=== PATIENT | male | born 1960 | race Caucasian/White ===

== ENCOUNTER 2016-12-31 10:37 | Emergency (ER) | payer BC, OTHER ==
[~2016-12-31] VITALS: Ht 172.7 cm; Wt 119.0 kg
[~2016-12-31 10:37] MED LIST: AMLO-114 PO; LRT5 PO
[2016-12-31 10:59] VITALS: TEMP 36.7; Ht 172.7 cm; Wt 119.0 kg
[2016-12-31] MEDS ORDERED: ALBUT/IPRATROP 3MG/0.5MG NEB 3 ML VIAL INH STA (11:15)
[2016-12-31 11:20] VITALS: O2SAT 94
[2016-12-31] MEDS ORDERED: METO-837 PO (11:40)
[2016-12-31] MEDS ORDERED: ASPI81TA28 PO (11:40)
[2016-12-31] MEDS ORDERED: LOSA25TA18 PO (11:40)
[2016-12-31] MEDS ORDERED: RANI150T3 PO (11:41)
--- NOTE | 2016-12-31 11:48 | DIAGNOSTIC IMAGING REPORT ---
CHEST ONE VIEW PORTABLE CLINICAL HISTORY: Shortness of breath COMPARISON STUDY: No previous studies for comparison. FINDINGS: The heart is mildly enlarged. There is no failure. There are left lower lobe airspace opacities possibly representing a pneumonia. There is blunting left lateral costophrenic angle suggesting a small effusion.[ The right lung is clear. IMPRESSION: 1. Left lower lobe airspace opacities, possibly representing a pneumonia. 2. Small left pleural effusion 3. Clinical and radiographic follow-up is recommended Electronically signed by: River Lang M.D. 12/31/2016 11:47 AM Dictated Date/Time: 12/31/2016 11:46 AM
[2016-12-31 11:50] LABS: BASO % 0.4 %; BASO ABS # 0.04 K/uL (0-0.2); COMPLETE YES; EOS % 0.6 %; HEMATOCRIT 49.3 % (42-52); IG% 0.2 %; LYMPH % 9.1 %; LYMPH ABS # 0.99 K/uL (1.2-3.4); MEAN CELL VOLUME 92.8 fL (80-100); MEAN CORPUSCULAR HGB CONC 34.5 g/dl (32-36); MEAN PLATELET VOLUME 10.5 fL (7.4-10.4); MONO % 10.5 %; NEUT % 79.2 %; PLATELET COUNT 304 K/uL (130-400); RED BLOOD COUNT 5.31 M/uL (4.7-6.1); WHITE BLOOD COUNT 10.86 K/uL (4.8-10.8)
[2016-12-31] MEDS ORDERED: HYDROmorphone INJ 0.5 MG/0.5 ML SYR IV STA ×2 (11:50→14:58)
[2016-12-31 11:58] LABS: INR 1.1 (0.9-1.1)
[2016-12-31 12:08] LABS: BUN/CREATININE RATIO 13.4 (10-20); CALCIUM 9.2 mg/dl (8.5-10.1); CREATININE 1.1 mg/dl (0.60-1.40); POTASSIUM 4.2 mmol/L (3.5-5.1)
[2016-12-31 12:10] LABS: ALB/GLOB RATIO 0.7 (0.9-2)
[2016-12-31] MEDS ORDERED: OPTIRAY 320 IV PRN (12:15)
--- NOTE | 2016-12-31 12:35 | DIAGNOSTIC IMAGING REPORT ---
CT ANGIOGRAM OF THE CHEST CLINICAL HISTORY: Left-sided chest pain. Pleurisy. Shortness of breath. Abnormal chest x-ray. COMPARISON STUDY: Chest x-ray dated 12/31/2016 TECHNIQUE: Following the IV administration of 95 mL of Optiray-320, CT angiogram of the thorax was performed from the thoracic inlet to the lung bases utilizing the pulmonary embolus protocol. Images are reviewed in the axial, sagittal, and coronal planes. IV contrast was administered without complication. MIP imaging was performed. A dose lowering technique was utilized adhering to the principles of ALARA. CT DOSE: 687.66 mGy.cm FINDINGS: The visualized portions the upper abdomen reveal hepatic steatosis. Mediastinal and left hilar lymph nodes are the upper limits of normal in size. There is no pathologic axillary lymphadenopathy. There was no evidence of thoracic aortic dilatation. There were no pulmonary artery filling defects to indicate acute pulmonary embolism. There is a left pleural effusion. There is an area of masslike consolidation within the superior segment the left lower lobe, likely representing a focal pneumonia. Imaging subsequent to treatment will be necessary to document resolution. IMPRESSION: 1. No evidence of acute pulmonary or wasn't 2. 3.4 cm area of masslike consolidation within the superior segment of the left lower lobe, likely are presenting a focal pneumonia. Imaging subsequent to treatment is recommended to document resolution, and exclude an underlying neoplasm 3. Left pleural effusion Electronically signed by: River Lang M.D. 12/31/2016 12:33 PM Dictated Date/Time: 12/31/2016 12:29 PM
[2016-12-31] MEDS ORDERED: LEVAQUIN 750MG / 150ML D5W IV STA (13:27)
[2016-12-31] MEDS ORDERED: SODIUM CHLORIDE 0.9% 1000ML 1,000 ML IV STA (15:30)
[2016-12-31] MEDS ORDERED: KETOROLAC TROMETHAMINE 30 MG/ML VIAL IV STA (16:00)
[2016-12-31] MEDS ORDERED: FENTANYL CITRATE INJ 50 MCG/1 ML 2 ML VIAL IV STA (16:00)
[2016-12-31] MEDS ORDERED: OXYCODONE IR HOME PACK PO ONE (17:15)
[2016-12-31] MEDS ORDERED: LEVO-366 PO (17:22)
[2016-12-31] MEDS ORDERED: OXYC1TAB3 PO (17:22)
[2016-12-31] MEDS ORDERED: ALBUTEROL HFA 8 GM INHALER INH ONE (17:30)
[2016-12-31 17:53] VITALS: BP 142/82; PULSE 85; O2SAT 95
--- NOTE | 2016-12-31 18:24 | EMERGENCY ROOM VISIT NOTE ---
History Report prepared by Belinda: Jaqueline Clayton Under the Supervision of: Dr. Trevin Blanca M.D. First contact with patient: 11:28 Chief Complaint: SHORTNESS OF BREATH Stated Complaint: TROUBLE BREATHING,CAN'T TAKE A DEEP BREATH Nursing Triage Summary: patient states he was feeling x3 weeks. today patient woke up around 0300 coughing and c/o left lower chest pain and pain durin inspiration and SOB History of Present Illness The patient is a 56 year old male who presents to the Emergency Room with complaints of shortness of breath beginning at 0300 this morning. He states that over the last few weeks he has also had back pain. He also reports having a cough for the last 2 years, but that it has not changed recently. The patient states that he has had full body achiness over the last 3 weeks, but no other cold symptoms. He states that he has been unable to take a deep breath and that when he does, his pain is exacerbated. He reports that he has been tested for Lyme disease before but that it was negative. Pt denies LOC, headache, fevers, chills, diaphoresis, visual changes, neck pain, chest pain, nausea, vomiting, abdominal pain, melena, hematochezia, urinary symptoms, numbness, lymphadenopathy, rash, or other complaints. The patient denies recent travels. He reports that his mother has hyperlipidemia, but denies a family history of heart problems. The patient states that he is currently not treated for his cholesterol. Source of History: patient Onset: 0300 this morning Position: other (global) Quality: other (shortness of breath ) Modifying Factors (Worsening): other (trying to take a deep breath ) Associated Symptoms: + cough, + back pain, + weakness (full body achiness ) , No fevers Review of Systems See HPI for pertinent positives and negatives. A total of ten systems were reviewed and were otherwise negative. Past Medical & Surgical Medical Problems: (1) Borderline hyperlipidemia Family History FH: hyperlipidemia Social History Smoking Status: Never Smoker Marital Status: Housing Status: lives with significant other Current/Historical Medications Scheduled Aspirin (Aspirin Ec), 81 MG PO DAILY Levofloxacin (Levaquin), 500 MG PO DAILY Losartan Potassium (Cozaar), Unknown Dose PO DAILY Metoprolol & Hydrochlorothiazi (Metoprolol Succinate ER/H 50-12.5 mg), Unknown Dose PO DAILY Ranitidine Hcl (Zantac), 150 MG PO DAILY Scheduled PRN Oxycodone Ir (Roxicodone Ir), 1-2 TAB PO Q4H PRN for Pain Allergies Coded Allergies: No Known Allergies (Unverified , 12/31/16) Physical Exam Vital Signs Date Time Temp Pulse Resp B/P (MAP) Pulse Ox O2 Delivery O2 Flow Rate FiO2 12/31/16 17:53 85 20 142/82 95 12/31/16 17:30 85 20 142/82 95 Room Air 12/31/16 16:10 78 12/31/16 15:30 70 20 93/52 96 Room Air 12/31/16 14:30 80 20 137/94 94 Room Air 12/31/16 13:30 78 22 155/90 93 Room Air 12/31/16 12:42 80 20 145/87 92 Room Air 12/31/16 12:06 84 12/31/16 11:21 94 Room Air 12/31/16 11:20 94 Room Air 12/31/16 10:59 36.7 83 24 157/88 95 Room Air Physical Exam GENERAL: Awake, alert, uncomfortable-appearing, in no distress HENT: Normocephalic, atraumatic. Oropharynx unremarkable. EYES: Normal conjunctiva. Sclera non-icteric. NECK: Supple. No nuchal rigidity. FROM. No JVD. RESPIRATORY: Diminished breath sounds in left base. Mildly tachypneic. CARDIAC: Regular rate, normal rhythm. Extremities warm and well perfused. Pulses equal. ABDOMEN: Soft, non-distended. No tenderness to palpation. No rebound or guarding. No masses. RECTAL: Deferred. MUSCULOSKELETAL: Chest examination reveals no tenderness. The back is symmetrical on inspection without obvious abnormality. There is no CVA tenderness to palpation. No joint edema. LOWER EXTREMITIES: Calves are equal size bilaterally and non-tender. No edema. No discoloration. NEURO: Normal sensorium. No sensory or motor deficits noted. SKIN: No rash or jaundice noted. Medical Decision & Procedures ER Provider Diagnostic Interpretation: Radiology results as stated below per my review and radiologist interpretation: CHEST ONE VIEW PORTABLE CLINICAL HISTORY: Shortness of breath COMPARISON STUDY: No previous studies for comparison. FINDINGS: The heart is mildly enlarged. There is no failure. There are left lower lobe airspace opacities possibly representing a pneumonia. There is blunting left lateral costophrenic angle suggesting a small effusion.[ The right lung is clear. IMPRESSION: 1. Left lower lobe airspace opacities, possibly representing a pneumonia. 2. Small left pleural effusion 3. Clinical and radiographic follow-up is recommended Electronically signed by: River Lang M.D. 12/31/2016 11:47 AM Dictated Date/Time: 12/31/2016 11:[address] ANGIOGRAM OF THE CHEST CLINICAL HISTORY: Left-sided chest pain. Pleurisy. Shortness of breath. Abnormal chest x-ray. COMPARISON STUDY: Chest x-ray dated 12/31/2016 TECHNIQUE: Following the IV administration of 95 mL of Optiray-320, CT angiogram of the thorax was performed from the thoracic inlet to the lung bases utilizing the pulmonary embolus protocol. Images are reviewed in the axial, sagittal, and coronal planes. IV contrast was administered without complication. MIP imaging was performed. A dose lowering technique was utilized adhering to the principles of ALARA. CT DOSE: 687.66 mGy.cm FINDINGS: The visualized portions the upper abdomen reveal hepatic steatosis. Mediastinal and left hilar lymph nodes are the upper limits of normal in size. There is no pathologic axillary lymphadenopathy. There was no evidence of thoracic aortic dilatation. There were no pulmonary artery filling defects to indicate acute pulmonary embolism. There is a left pleural effusion. There is an area of masslike consolidation within the superior segment the left lower lobe, likely representing a focal pneumonia. Imaging subsequent to treatment will be necessary to document resolution. IMPRESSION: 1. No evidence of acute pulmonary or wasn't 2. 3.4 cm area of masslike consolidation within the superior segment of the left lower lobe, likely are presenting a focal pneumonia. Imaging subsequent to treatment is recommended to document resolution, and exclude an underlying neoplasm 3. Left pleural effusion Electronically signed by: River Lang M.D. 12/31/2016 12:33 PM Dictated Date/Time: 12/31/2016 12:29 PM Laboratory Results 12/31/16 11:15 Red Blood Count 5.31, Mean Corpuscular Volume 92.8, Mean Corpuscular Hemoglobin 32.0, Mean Corpuscular Hemoglobin Concent 34.5, Mean Platelet Volume 10.5, Neutrophils (%) (Auto) 79.2, Lymphocytes (%) (Auto) 9.1, Monocytes (%) (Auto) 10.5, Eosinophils (%) (Auto) 0.6, Basophils (%) (Auto) 0.4, Neutrophils # (Auto ) 8.61, Lymphocytes # (Auto) 0.99, Monocytes # (Auto) 1.14, Eosinophils # (Auto ) 0.06, Basophils # (Auto) 0.04 12/31/16 11:15 Test 12/31/16 11:15 12/31/16 11:19 12/31/16 15:32 White Blood Count 10.86 K/uL (4.8-10.8) Red Blood Count 5.31 M/uL (4.7-6.1) Hemoglobin 17.0 g/dL (14.0-18.0) Hematocrit 49.3 % (42-52) Mean Corpuscular Volume 92.8 fL (80-100) Mean Corpuscular Hemoglobin 32.0 pg (25-34) Mean Corpuscular Hemoglobin Concent 34.5 g/dl (32-36) Platelet Count 304 K/uL (130-400) Mean Platelet Volume 10.5 fL (7.4-10.4) Neutrophils (%) (Auto) 79.2 % Lymphocytes (%) (Auto) 9.1 % Monocytes (%) (Auto) 10.5 % Eosinophils (%) (Auto) 0.6 % Basophils (%) (Auto) 0.4 % Neutrophils # (Auto) 8.61 K/uL (1.4-6.5) Lymphocytes # (Auto) 0.99 K/uL (1.2-3.4) Monocytes # (Auto) 1.14 K/uL (0.11-0.59) Eosinophils # (Auto) 0.06 K/uL (0-0.5) Basophils # (Auto) 0.04 K/uL (0-0.2) RDW Standard Deviation 44.3 fL (36.4-46.3) RDW Coefficient of Variation 13.1 % (11.5-14.5) Immature Granulocyte % (Auto) 0.2 % Immature Granulocyte # (Auto) 0.02 K/uL (0.00-0.02) Prothrombin Time 12.0 SECONDS (9.0-12.0) Prothromb Time International Ratio 1.1 (0.9-1.1) Activated Partial Thromboplast Time 26.8 SECONDS (21.0-31.0) Partial Thromboplastin Ratio 1.0 D-Dimer 1460 ug/L FEU (0-500) Anion Gap 6.0 mmol/L (3-11) Est Creatinine Clear Calc Drug Dose 92.9 ml/min Estimated GFR () 85.9 Estimated GFR (Non- 74.1 BUN/Creatinine Ratio 13.4 (10-20) Calcium Level 9.2 mg/dl (8.5-10.1) Total Bilirubin 0.9 mg/dl (0.2-1) Aspartate Amino Transf (AST/SGOT) 17 U/L (15-37) Alanine Aminotransferase (ALT/SGPT) 36 U/L (12-78) Alkaline Phosphatase 74 U/L (45-117) Total Protein 8.5 gm/dl (6.4-8.2) Albumin 3.4 gm/dl (3.4-5.0) Globulin 5.1 gm/dl (2.5-4.0) Albumin/Globulin Ratio 0.7 (0.9-2) Bedside Troponin I < 0.030 ng/ml (0-0.045) Bedside Glucose 159 mg/dl (70-99) Laboratory results reviewed by me Medications Administered Medications (Trade) Dose Ordered Sig/Prabhjot Route Start Time Stop Time Status Last Admin Dose Admin Hydromorphone HCl (Dilaudid Inj) 0.5 mg NOW STAT IV 12/31/16 11:50 12/31/16 11:52 DC 12/31/16 12:18 0.5 MG Levofloxacin (Levaquin / D5W) 750 mg NOW STAT IV 12/31/16 13:27 12/31/16 13:28 DC 12/31/16 13:55 750 MG Hydromorphone HCl (Dilaudid Inj) 0.5 mg NOW STAT IV 12/31/16 14:58 12/31/16 15:01 DC 12/31/16 15:12 0.5 MG Sodium Chloride 1,000 ml @ 999 mls/hr Q1H1M STAT IV 12/31/16 15:30 12/31/16 16:30 DC 12/31/16 15:41 999 MLS/HR Fentanyl Citrate (Fentanyl Inj) 50 mcg NOW STAT IV 12/31/16 16:00 12/31/16 16:01 DC 12/31/16 16:14 50 MCG Ketorolac Tromethamine (Toradol Inj) 10 mg NOW STAT IV 12/31/16 16:00 12/31/16 16:01 DC 12/31/16 16:14 10 MG Oxycodone HCl (Roxicodone Immediate Rel 5MG Home Pack) 1 homepack UD ONCE PO 12/31/16 17:15 12/31/16 17:16 DC 12/31/16 17:48 1 HOMEPACK Albuterol (Ventolin Hfa Inhaler) 2 puffs NOW ONCE INH 12/31/16 17:30 12/31/16 17:31 DC 12/31/16 17:48 2 PUFFS ECG Indication: SOB/dyspnea Rate (beats per minute): 77 Rhythm: sinus with SA Findings: no acute ischemic change, no ectopy Change: repeat ECG: Sinus rhythm with PAC's, rate of 79, no ectopy, no ischemia ED Course 1148: The patient was evaluated in room C2. A complete history and physical exam was performed. 1150: Ordered Dilaudid Inj 0.5 mg IV. 1327: Ordered Levofloxacin 750 mg IV. 1458: Ordered Dilaudid Inj 0.5 mg IV. 1530: Ordered Sodium Chloride 1,000 ml @ 999 mls/hr IV. 1558: The patient was having more pain. He was given fluids because after the second dose of Dilaudid his blood pressure dropped. His blood pressure is better now. A repeat ECG was done. 1600: Ordered Toradol Inj 10 mg IV, Fentanyl Citrate 50 mcg IV. 1650: The patient reports feeling a lot better. 1715: Ordered Oxycodone HCl 1 homepack PO. 1730: Ordered Albuterol 2 puffs INH. 1735: I reevaluated the patient. Discussed results and discharge instructions: He verbalized understanding and agreement. The patient is ready for discharge. Medical Decision Triage Nursing notes reviewed. The patient's presentation and history were concerning for chest pain. Etiologies such as pleurisy, pneumonia,cardiac ischemia, aortic dissection, pulmonary embolism, pneumothorax, musculoskeletal, infections, gastrointestinal , as well as others were entertained. The patient was evaluated. He was quite uncomfortable. He was given a dose of IV Dilaudid which helped. He did require a second dose. The patient had an abnormal chest x-ray. He did have leukocytosis on CBC. His d-dimer was elevated. The patient underwent CT imaging. He was found to have a left lower lobe pneumonia that was peripheral as well as a small effusion. I suspect that he has a pneumonia and pleurisy secondary to this effusion. He did have an episode where he was put uncomfortable and then had a mildly low blood pressure. This was shortly after receiving IV Dilaudid. After hydration he was doing much better. He also notes feeling much better sitting up rather than laying back. He felt significantly better with sitting up. He is given Toradol and fentanyl and reassessed. He was doing much better. The patient was treated with IV Levaquin in the hospital here. I discussed conservative management with him as he has turned the corner and is doing very well. He feels comfortable. If he worsens in any way he will be back. He has a follow- up this week are scheduled with his primary physician. He'll be treated with oral Levaquin, albuterol MDI, and oxycodone. I gave my usual and customary discussion regarding this issue. By the evaluation outlined above other emergent etiologies such as those listed in the differential, as well as others, were deemed relatively unlikely. The patient was educated about the findings as listed above. All questions were answered and the patient was pleased with the treatment. Return instructions were outlined and the patient was discharged in stable condition. The patient was referred to his PCP for follow-up for a recheck of the current condition. Medication Reconcilliation Current Medication List: was personally reviewed by me Blood Pressure Screening Patient's blood pressure: Elevated blood pressure Blood pressure disposition: Referred to PCP Impression Primary Impression: Pneumonia Additional Impressions: Left sided chest pain Pleurisy Scribe Attestation The scribe's documentation has been prepared under my direction and personally reviewed by me in its entirety. I confirm that the note above accurately reflects all work, treatment, procedures, and medical decision making performed by me. Departure Information Dispostion Home / Self-Care Prescriptions Oxycodone Ir (Roxicodone Ir) 5 Mg Tab 1-2 TAB PO Q4H Y for Pain, #15 TAB Prov: Trevin Blanca MD 12/31/16 Levofloxacin (Levaquin) 500 Mg Tab 500 MG PO DAILY for 9 Days, #9 TAB Prov: Trevin Blanca MD 12/31/16 Referrals Estevan Chan M.D. (PCP) Forms HOME CARE DOCUMENTATION FORM, IMPORTANT VISIT INFORMATION Patient Instructions [facility] Additional Instructions PNEUMONIA INSTRUCTIONS: Levafloxacin(Levaquin) 500mg: Take one pill daily for 9 days for your infection. All antibiotics can cause diarrhea. If this occurs and you feel worse or it does not resolve in 1-2 days follow up with your doctor or return to the Emergency Department as this could be signs of serious underlying problems. Any medication can cause an allergic reaction, stop the pills immediately and return to the ER for rash, hives, breathing difficulties, or swelling. Oxycodone (OxyIR) 5mg: Take 1-2 pills every four hours as needed for breakthrough pain. Avoid alcohol, operating machinery or dangerous equipment, working on ladders or roofs, DRIVING, or situations where being under the influence may be dangerous. It is recommended to use a stool softener such as Colace, 100mg twice daily while taking this medication to avoid constipation. Albuterol inhaler: Two puffs 4 times daily for seven days to improve breathing , then 2 puffs every 4-6 hours as needed. Acetaminophen(Tylenol) may be used for fever or pain. Use 1000mg every six hours as needed. Avoid using more than 4000mg in a 24 hour period. AND/OR Ibuprofen(Motrin, Advil) may be used for fever or pain. Use 600mg every six hours as needed. Take with food. Avoid using more than 2400mg in a 24 hour period. Do not use 2400mg per day for more than three consecutive days without physician direction. Prolonged inappropriate use can lead to stomach upset or ulcers. Controlling your fever with Tylenol and Ibuprofen as above will make you feel better. Rest and drink plenty of fluids. Avoid strenuous activity until your symptoms resolve and your breathing returns to normal. Return to the ER for chest pain, difficulty breathing, persistent fevers, vomiting, worsening of your condition, or as needed. Follow up with your primary physician as scheduled this week for a recheck of the current condition. Problem Qualifiers
== END 2016-12-31 17:53 | disposition home or self-care (01) ==
LOC: C.EDB 10:39 → C.EDC 17:53
DX: J18.9 Pneumonia, unspecified organism (principal); R07.89 Other chest pain; R09.1 Pleurisy; M54.9 Dorsalgia, unspecified; R53.1 Weakness; E78.5 Hyperlipidemia, unspecified; Z79.82 Long term (current) use of aspirin; Z79.899 Other long term (current) drug therapy; Z83.49 Family history of other endocrine, nutritional and metabolic diseases

== ENCOUNTER 2017-01-19 14:21 | Inpatient (IN) | payer BC, OTHER ==
[~2017-01-19] VITALS: Ht 175.3 cm; Wt 114.7 kg
[2017-01-19] VITALS (7 sets, daily range): BP systolic 169; BP diastolic 89; PULSE 84–100; TEMP 37.5; O2SAT 90–98; Ht 175.3 cm; Wt 114.7 kg
[~2017-01-19 14:21] MED LIST changes: -AMLO-114 PO; +ASPI81TA28 PO; +LOSA25TA18 PO; -LRT5 PO; +METO-837 PO; +OXYC1TAB3 PO; +RANI150T3 PO
[2017-01-19 15:28] LABS: BASO % 0.2 %; BASO ABS # 0.02 K/uL (0-0.2); EOS % 0.7 %; EOS ABS # 0.08 K/uL (0-0.5); HEMATOCRIT 36.6 % (42-52); HEMOGLOBIN 12.8 g/dL (14.0-18.0); IG# 0.08 K/uL (0.00-0.02); LYMPH % 10.3 %; LYMPH ABS # 1.24 K/uL (1.2-3.4); MEAN CELL VOLUME 88.6 fL (80-100); MEAN PLATELET VOLUME 10.1 fL (7.4-10.4); MONO % 11.6 %; NEUT % 76.5 %; PLATELET COUNT 316 K/uL (130-400); RED CELL DISTRIBUTION WIDTH CV 13.5 % (11.5-14.5); RED CELL DISTRIBUTION WIDTH SD 44.1 fL (36.4-46.3); WHITE BLOOD COUNT 12.02 K/uL (4.8-10.8)
[2017-01-19 15:39] LABS: INR 1.2 (0.9-1.1); PTT PATIENT 25.7 SECONDS (21.0-31.0)
[2017-01-19 15:46] LABS: ALBUMIN 2.1 gm/dl (3.4-5.0); CALCIUM 8.7 mg/dl (8.5-10.1); CREATININE 1.06 mg/dl (0.60-1.40)
[2017-01-19 15:49] LABS: TOTAL PROTEIN 7.3 gm/dl (6.4-8.2)
[2017-01-19] MEDS ORDERED: HYZ/50125 PO (16:08)
[2017-01-19] MEDS ORDERED: AMOX875T PO (16:08)
[2017-01-19] MEDS ORDERED: METO100T44 PO (16:08)
--- NOTE | 2017-01-19 16:58 | EMERGENCY ROOM VISIT NOTE ---
History First contact with patient: 14:37 Chief Complaint: RESPIRATORY PROBLEMS Stated Complaint: PNEUMONIA Nursing Triage Summary: pt saw pcp on Sunday for short of breath pt had chest xray and ct done, after ct told "go to ER fluid on lung" sob with exertion or excessive talking cough History of Present Illness The patient is a 56 year old male who presents to the Emergency Room via private vehicle referred by family doctor with complaints of "pneumonia". The patient states that for the past month he has been dealing with shortness of breath. He states that December 31 was when he woke up with left-sided superior abdominal pain. He states that 3 weeks prior to that he had shortness of breath with exertion. He now notes extreme shortness of breath with walking. There is no chest pain. He states that he cannot lay flat without feeling as though he is suffocating. He was informed that he has a pleural effusion and had a repeat CT scan performed today Crays words and notes significant progression of this. He is aware that this is either infectious being pneumonia or potentially cancerous. Review of Systems A complete 10-point Review of Systems was discussed with the patient, with pertinent positives and negatives listed in the History of Present Illness. All remaining Review of Systems questions can be considered negative unless otherwise specified. Past Medical/Surgical History Medical Problems: (1) Borderline hyperlipidemia (2) Pleural effusion (3) Shortness of breath Family History FH: hyperlipidemia Social History Smoking Status: Former Smoker Marital Status: Housing Status: lives with significant other Current/Historical Medications Scheduled Amoxicillin & Pot Clavulanate (Augmentin 875-125 mg), 1 TAB PO BID Aspirin (Aspirin Ec), 81 MG PO DAILY Hctz/Losartan (Hyzaar 12.5MG/50MG), 1 TAB PO DAILY Metoprolol Succ (Toprol Xl) (Toprol-Xl ), 100 MG PO DAILY Ranitidine Hcl (Zantac), 150 MG PO DAILY Physical Exam Vital Signs Date Time Temp Pulse Resp B/P (MAP) Pulse Ox O2 Delivery O2 Flow Rate FiO2 01/19/17 16:22 87 01/19/17 16:22 88 16 141/76 94 Room Air 01/19/17 15:03 94 Room Air 01/19/17 14:30 93 Room Air 01/19/17 14:25 36.3 88 20 145/93 93 Room Air Physical Exam VITAL SIGNS - Vital signs and nursing notes were reviewed. Stable. GENERAL -56-year-old male appearing his stated age who is in no acute distress. Communicates well with provider and answers questions appropriately.. HEAD - NC/AT. EYES - Sclera anicteric. EARS - No deformities of external structures noted on gross examination bilaterally. NOSE - Midline and without cyanosis. No epistaxis or purulent drainage noted. MOUTH/OROPHARYNX - Without perioral cyanosis. LUNGS - Chest wall symmetric without accessory muscle use, intercostals retractions, or central cyanosis. Normal vesicular breath sounds CTA B/L. Slightly diminished L lung elias. CARDIAC - RRR with S1/S2. No murmur, rubs, or gallops appreciated. ABDOMEN - Abdominal contour normal without pulsations or visible masses. BS normoactive all four quadrants. No tenderness, palpable masses, hepatosplenomegaly, or ascites noted. EXTREMITIES - No clubbing or peripheral cyanosis. NEUROLOGIC - Cranial nerves II through XII grossly intact. Sensory intact to light touch throughout. PSYCH - A&O, and cooperates fully with examiner. Pt is very pleasant and interacts well with examiner. Medical Decision & Procedures ER Provider Diagnostic Interpretation: CT scan of the patient's chest performed without contrast at [facility]: Interval increase in left pleural effusion with worsening left medial posterior air space consolidation, infectious versus neoplastic. Mediastinal lymphadenopathy, reactive versus metastatic. Small right pleural effusion new. Laboratory Results 01/19/17 15:16 Red Blood Count 4.13, Mean Corpuscular Volume 88.6, Mean Corpuscular Hemoglobin 31.0, Mean Corpuscular Hemoglobin Concent 35.0, Mean Platelet Volume 10.1, Neutrophils (%) (Auto) 76.5, Lymphocytes (%) (Auto) 10.3, Monocytes (%) (Auto) 11.6, Eosinophils (%) (Auto) 0.7, Basophils (%) (Auto) 0.2, Neutrophils # (Auto ) 9.20, Lymphocytes # (Auto) 1.24, Monocytes # (Auto) 1.40, Eosinophils # (Auto ) 0.08, Basophils # (Auto) 0.02 01/19/17 15:16 Test 01/19/17 15:16 White Blood Count 12.02 K/uL (4.8-10.8) Red Blood Count 4.13 M/uL (4.7-6.1) Hemoglobin 12.8 g/dL (14.0-18.0) Hematocrit 36.6 % (42-52) Mean Corpuscular Volume 88.6 fL (80-100) Mean Corpuscular Hemoglobin 31.0 pg (25-34) Mean Corpuscular Hemoglobin Concent 35.0 g/dl (32-36) Platelet Count 316 K/uL (130-400) Mean Platelet Volume 10.1 fL (7.4-10.4) Neutrophils (%) (Auto) 76.5 % Lymphocytes (%) (Auto) 10.3 % Monocytes (%) (Auto) 11.6 % Eosinophils (%) (Auto) 0.7 % Basophils (%) (Auto) 0.2 % Neutrophils # (Auto) 9.20 K/uL (1.4-6.5) Lymphocytes # (Auto) 1.24 K/uL (1.2-3.4) Monocytes # (Auto) 1.40 K/uL (0.11-0.59) Eosinophils # (Auto) 0.08 K/uL (0-0.5) Basophils # (Auto) 0.02 K/uL (0-0.2) RDW Standard Deviation 44.1 fL (36.4-46.3) RDW Coefficient of Variation 13.5 % (11.5-14.5) Immature Granulocyte % (Auto) 0.7 % Immature Granulocyte # (Auto) 0.08 K/uL (0.00-0.02) Prothrombin Time 12.4 SECONDS (9.0-12.0) Prothromb Time International Ratio 1.2 (0.9-1.1) Activated Partial Thromboplast Time 25.7 SECONDS (21.0-31.0) Partial Thromboplastin Ratio 1.0 Anion Gap 10.0 mmol/L (3-11) Est Creatinine Clear Calc Drug Dose 97.7 ml/min Estimated GFR () 89.9 Estimated GFR (Non- 77.5 BUN/Creatinine Ratio 21.8 (10-20) Calcium Level 8.7 mg/dl (8.5-10.1) Magnesium Level 2.2 mg/dl (1.8-2.4) Total Bilirubin 0.4 mg/dl (0.2-1) Aspartate Amino Transf (AST/SGOT) 25 U/L (15-37) Alanine Aminotransferase (ALT/SGPT) 34 U/L (12-78) Alkaline Phosphatase 88 U/L (45-117) Total Protein 7.3 gm/dl (6.4-8.2) Albumin 2.1 gm/dl (3.4-5.0) Globulin 5.2 gm/dl (2.5-4.0) Albumin/Globulin Ratio 0.4 (0.9-2) Medical Decision Patient was seen and evaluated as above. He presents to us with dyspnea. CT scan results indicate that he has significant increase in his left pleural effusion that is now quite large. I immediately discussed the case with the on- call camp dining room attendant, Dr. Nance. She recommended having the patient admitted and having her team consult. This was after I relayed to her that I felt the patient should be admitted given his amount of dyspnea and acute worsening. IV access was initiated, and the above workup was performed. Patient's CBC reveals leukocytosis of 12.02. Hemoglobin 12.8. INR is 1.2. Patient's metabolic panel reveals sodium low at 1:30, chloride low at 95, BUN high 23. Please refer to further documentation regarding the patient's stay. I did discuss the case with Dr. Villasenor, hospitalist. Case was also discussed with the attending physician Dr. Lazo. In evaluation treatment this patient the following differential diagnoses were entertained: Pneumonia, metastatic disease, among others. Impression Primary Impression: Pleural effusion Additional Impression: Dyspnea Departure Information Referrals Estevan Chan M.D. (PCP) Patient Instructions My [facility] Problem Qualifiers
[2017-01-19] MEDS ORDERED: ACETAMINOPHEN 325 MG TAB PO PRN (17:00)
[2017-01-19] MEDS ORDERED: ALBUT/IPRATROP 3MG/0.5MG NEB 3 ML VIAL INH PRN (17:00)
[2017-01-19] MEDS ORDERED: ONDANSETRON INJ 2 MG/ML 2 ML VIAL IV PRN (17:00)
[2017-01-19] MEDS ORDERED: PRVHFAIN PO (17:02)
[2017-01-19] MEDS ORDERED: AZITHROMYCIN 250 MG TAB PO ONE (17:15)
[2017-01-19] MEDS ORDERED: SODIUM CHLORIDE 0.9% 1000ML 1,000 ML IV SCH (17:30)
--- NOTE | 2017-01-19 17:53 | History and Physical ---
History & Physical Date & Time of Service: Jan 19, 2017 at 17:16 Chief Complaint: Pneumonia Primary Care Physician: Estevan Chan M.D. History of Present Illness Source: patient, spouse, clinic records, hospital records Pt is 56 y/o with PMH HTN presented to ER with c/o SOB. Pt reports started with SOB with exertion in 11/2016. He had symptoms for approx 3 weeks prior to presenting to ER on 12/31/16 and he was treated for presumed pneumonia with Levaquin and albuterol inhaler. Pt states finished course and thought he was feeling better, but then started with increased SOB. States was SOB with climbing flight of stairs but has worsened to SOB walking around in his house. SOB with talking a lot also. Reports night sweats x couple of weeks. He has been having hot flashes past 2 months. He reports cough for past couple of years. States today coughed some yellow sputum. Coughing spells causes a BOLTON which resolves. Reports at end of work day will have some swelling LE which resolves by morning. Denies worsening LE edema. Pt states past couple of weeks has lost approx 10lbs as he has had decreased appetite. Hx smoker for 20 years. He saw PCP 2 days ago and was started on augmentin and had CXR and CT chest ordered. Denies hx asthma or COPD. Denies hemoptysis, orthopnea, PND, N/V/D/C, BOLTON, dizziness, syncope, vision changes, neck pain, CP, sore throat, choking, otalgia, rhinorrhea, abdominal pain, paresthesias, weakness, extremity weakness , rashes, urinary symptoms. 01/19/17 CT Chest: 1. Interval increase in left pleural effusion with worsening left medial posterior airspace consolidation, infectious vs neoplastic. 2. mediastinal lymphadenopathy, reactive vs metastatic. 3. Small right pleural effusion, new 01/17/17 CXR: moderate to large L pleural effusion progression compared to , probable underlying pneumonia vs neoplasm 12/31/16 CT chest: 3.4cm masslike consolidation w/i superior segment LLL, L pleural effusion 01/06/15 CT chest: 5mm pleural based LLL nodule, several other tiny nodules throughout lungs 01/28/16 CT chest: 5mm pleural based LLL nodule, several other tiny nodules throughout lungs unchanged Past Medical/Surgical History Medical Problems: (1) Borderline hyperlipidemia Status: Chronic (2) HTN (hypertension) Status: Chronic (3) Hx of solitary pulmonary nodule Permanent Comment: 2014, 2015 CT chest - 5mm LLL pleural based nodule Status: Chronic Surgical Problems: (1) Hx of cardiovascular stress test Permanent Comment: 2003 Status: Resolved (2) Hx of colonoscopy Permanent Comment: 2012 - normal Status: Resolved Family History Diabetes mellitus GRANDFATHER FH: cancer BROTHER (?umbilical CA) FH: hyperlipidemia MOTHER Hypertension FATHER Social History Smoking Status: Former Smoker (smoked 0.5ppd x 20-30 years) Smokeless Tobacco Use: former- chewed snuff for approx 30 years Alcohol Use: 1-2 beers most days of week, on weekends 6 beers Drug Use: none Marital Status: Housing status: lives with significant other Occupational Status: employed Multi-Drug Resistant Organisms History of MDRO: No Allergies Coded Allergies: No Known Allergies (Unverified , 01/19/17) Home Medications Scheduled Albuterol (Ventolin Hfa), 2 INHA PO Q6 Amoxicillin & Pot Clavulanate (Augmentin 875-125 mg), 1 TAB PO BID Aspirin (Aspirin Ec), 81 MG PO DAILY Hctz/Losartan (Hyzaar 12.5MG/50MG), 1 TAB PO DAILY Metoprolol Succ (Toprol Xl) (Toprol-Xl ), 100 MG PO DAILY Review of Systems Constitutional: No sweats (see HPI) Eyes: No worsening of vision, No eye pain, No redness, No discharge, No diplopia ENT: No hearing loss, No unusual epistaxis, No nasal symptoms, No sore throat, No trouble swallowing Respiratory: + shortness of breath (see HPI) Cardiovascular: No chest pain, No orthopnea, No PND, No palpitations Abdomen: No pain, No nausea, No vomiting, No diarrhea, No constipation, No GI bleeding Musculoskeletal: No joint pain, No muscle pain, No calf pain Genitourinary - Male: No hematuria, No dysuria, No urinary frequency, No urinary urgency, No urinary hesitancy, No urinary retention, No urinary incontinence Neurologic: No paralysis, No weakness, No numbness/tingling, No vertigo, No balance problems Psychiatric: No depression symptoms, No anxiety Endocrine: No fatigue, No excessive thirst, No excessive urination Hematologic / Lymphatic: + night sweats (see HPI), No abnormal bleeding/ bruising, No clotting problems Integumentary: + new/changing skin lesions (had R auricle ear lesion removed 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), No rash, No itch Physical Exam Vital Signs Date Time Temp Pulse Resp B/P (MAP) Pulse Ox O2 Delivery O2 Flow Rate FiO2 01/19/17 16:22 87 01/19/17 16:22 88 16 141/76 94 Room Air 01/19/17 15:03 94 Room Air 01/19/17 14:30 93 Room Air 01/19/17 14:25 36.3 88 20 145/93 93 Room Air General Appearance: no apparent distress, + obese Head: normocephalic, atraumatic Eyes: normal inspection, PERRL, EOMI, sclerae normal ENT: hearing grossly normal, pharynx normal, + pertinent finding (mucous membranes moist) Neck: supple, no JVD, trachea midline Respiratory/Chest: chest non-tender, no accessory muscle use, + decreased breath sounds (LLL, otherwise clear. Pt becomes SOB with several sentences ) Cardiovascular: regular rate, rhythm, no murmur, normal peripheral pulses Abdomen/GI: normal bowel sounds, non tender, soft Back: normal inspection, no CVA tenderness Extremities/Musculoskelatal: normal inspection, no calf tenderness, normal capillary refill, non-tender, + pedal edema (mild LE bilaterally) Neurologic/Psych: alert, normal mood/affect, oriented x 3 Skin: normal color, warm/dry, + pertinent finding (R auricle superior aspect with open biopsy site, covered with bandaid, no active bleeding) Diagnostics Laboratory Results Results Past 24 Hours Test 01/19/17 15:16 Range/Units White Blood Count 12.02 4.8-10.8 K/uL Red Blood Count 4.13 4.7-6.1 M/uL Hemoglobin 12.8 14.0-18.0 g/dL Hematocrit 36.6 42-52 % Mean Corpuscular Volume 88.6 80-100 fL Mean Corpuscular Hemoglobin 31.0 25-34 pg Mean Corpuscular Hemoglobin Concent 35.0 32-36 g/dl Platelet Count 316 130-400 K/uL Mean Platelet Volume 10.1 7.4-10.4 fL Neutrophils (%) (Auto) 76.5 % Lymphocytes (%) (Auto) 10.3 % Monocytes (%) (Auto) 11.6 % Eosinophils (%) (Auto) 0.7 % Basophils (%) (Auto) 0.2 % Neutrophils # (Auto) 9.20 1.4-6.5 K/uL Lymphocytes # (Auto) 1.24 1.2-3.4 K/uL Monocytes # (Auto) 1.40 0.11-0.59 K/uL Eosinophils # (Auto) 0.08 0-0.5 K/uL Basophils # (Auto) 0.02 0-0.2 K/uL RDW Standard Deviation 44.1 36.4-46.3 fL RDW Coefficient of Variation 13.5 11.5-14.5 % Immature Granulocyte % (Auto) 0.7 % Immature Granulocyte # (Auto) 0.08 0.00-0.02 K/uL Prothrombin Time 12.4 9.0-12.0 SECONDS Prothromb Time International Ratio 1.2 0.9-1.1 Activated Partial Thromboplast Time 25.7 21.0-31.0 SECONDS Partial Thromboplastin Ratio 1.0 Sodium Level 130 136-145 mmol/L Potassium Level 4.0 3.5-5.1 mmol/L Chloride Level 95 98-107 mmol/L Carbon Dioxide Level 25 21-32 mmol/L Anion Gap 10.0 3-11 mmol/L Blood Urea Nitrogen 23 7-18 mg/dl Creatinine 1.06 0.60-1.40 mg/dl Est Creatinine Clear Calc Drug Dose 97.7 ml/min Estimated GFR () 89.9 Estimated GFR (Non- 77.5 BUN/Creatinine Ratio 21.8 10-20 Random Glucose 102 70-99 mg/dl Calcium Level 8.7 8.5-10.1 mg/dl Magnesium Level 2.2 1.8-2.4 mg/dl Total Bilirubin 0.4 0.2-1 mg/dl Aspartate Amino Transf (AST/SGOT) 25 15-37 U/L Alanine Aminotransferase (ALT/SGPT) 34 12-78 U/L Alkaline Phosphatase 88 45-117 U/L Total Protein 7.3 6.4-8.2 gm/dl Albumin 2.1 3.4-5.0 gm/dl Globulin 5.2 2.5-4.0 gm/dl Albumin/Globulin Ratio 0.4 0.9-2 Diagnostic Radiology 01/19/17 CT Chest: 1. Interval increase in left pleural effusion with worsening left medial posterior airspace consolidation, infectious vs neoplastic. 2. mediastinal lymphadenopathy, reactive vs metastatic. 3. Small right pleural effusion, new 01/17/17 CXR: moderate to large L pleural effusion progression compared to 12/31/16, probable underlying pneumonia vs neoplasm EKG EKG: NSR, rate 81, incomplete RBBB Impression Assessment and Plan SOB/PLEURAL EFFUSION Pt with worsening pleural effusion on CT scan from previous on 12/31/16. Today CT Chest: 1. Interval increase in left pleural effusion with worsening left medial posterior airspace consolidation, infectious vs neoplastic. 2. mediastinal lymphadenopathy, reactive vs metastatic. 3. Small right pleural effusion, new. Pt 93% on RA. Is SOB with prolonged talking, and reports SOB with walking short distances, which has worsened over past couple of weeks. Initially treated with Levaquin for CAP, took 2.5 days Augmentin also. WBC: 12. afebrile. Hx LLL pulmonary nodule, hx smoker >20 years. Question infectious consolidation, but higher suspicion underlying malignancy. -supplemental O2 per protocol -duoneb Q4h prn -will start Rocephin, Zithromax to treat possible underlying pneumonia -sputum culture -cbc, prp in am -repeat CXR tomorrow -pulm consult, anticipate pleurocentesis -will hold ASA today HTN stable currently -continue metoprolol -continue hyzaar DVT PROPHYLAXIS -SCDs as anticipating procedure DISPOSITION -admit tele -Full Code -Follows with Dr Chan for routine care Pt was seen with Dr Villasenor. See addendum ATTENDING ADDENDUM ; pt seen and examined, care co ordinated with Joyce Kim PA-C 56 yo M with hx of tobacco use 30 pk /yr quit on 2013 , sent form PCP office for progressive SOB , CT finding of large left sided pleural effusion , with rt medial consolidation vs infiltrate pt mention of being progressively SOB in past 1 week , worse in last 1-2 , getting up on stairs-developing significant dyspneic spell no fever or chills, has minimum cough no lower ext swelling -does not have any known cardiac or pulmonary disease Plural effusion : concern for possible malignancy Pulmonology consulted for thoracentesis , Cxray in AM empiric Abx for possible rt base pneumonia no report of dysphagia or aspiration by pt Full code please refer to documentation of Isabell Kim PA-C for further discussion of other issues Harini Villasenor MD Level of Care Telemetry Resuscitation Status FULL RESUSCITATION VTE Prophylaxis VTE Risk Assessment Done? Y/N: Yes Risk Level: Moderate Given or contraindicated: SCD's Additional Copies To Estevan Chan M.D.
[2017-01-19] MEDS ORDERED: CEFTRIAXONE SOD INJ 1 GM in DEXTROSE 5% ADD-VANTAGE 50ML 50 ML IV SCH (18:00)
[2017-01-19] MEDS: CEFTRIAXONE SOD INJ 1 GM in DEXTROSE 5% ADD-VANTAGE 50ML 50 ML IV SCH (21:03)
[2017-01-20] VITALS (16 sets, daily range): BP systolic 111–152; BP diastolic 68–95; PULSE 75–94; TEMP 36.4–37.5; O2SAT 94–98
[2017-01-20] MEDS ORDERED: ALBUTEROL HFA 8 GM INHALER INH PRN (06:45)
[2017-01-20 06:47] LABS: HEMATOCRIT 36.4 % (42-52); MEAN CELL VOLUME 89.9 fL (80-100); MEAN CORPUSCULAR HEMOGLOBIN 29.6 pg (25-34); MEAN PLATELET VOLUME 10.5 fL (7.4-10.4); PLATELET COUNT 292 K/uL (130-400); RED CELL DISTRIBUTION WIDTH CV 13.8 % (11.5-14.5); RED CELL DISTRIBUTION WIDTH SD 45.8 fL (36.4-46.3); WHITE BLOOD COUNT 10.21 K/uL (4.8-10.8)
[2017-01-20 07:25] LABS: CALCIUM 8.3 mg/dl (8.5-10.1); CREATININE 0.83 mg/dl (0.60-1.40)
[2017-01-20] MEDS: LOSARTAN/HCTZ 50-12.5 EA TAB PO SCH (07:25)
[2017-01-20] MEDS: METOPROLOL SUCC 50MG EXT REL TAB PO SCH (07:26)
--- NOTE | 2017-01-20 09:17 | DIAGNOSTIC IMAGING REPORT ---
CHEST 2 VIEWS ROUTINE CLINICAL HISTORY: Shortness of breath. Pleural effusion. COMPARISON STUDY: Chest CT January 19, 2017. FINDINGS: A large left pleural effusion is noted. This occupies the majority of the left hemithorax. Right lung is clear. Cardiac size is normal. There is no evidence of pulmonary edema. IMPRESSION: Large left pleural effusion which occupies the majority of the left hemithorax. Electronically signed by: Sen Zheng M.D. 01/20/2017 9:15 AM Dictated Date/Time: 01/20/2017 9:13 AM
--- NOTE | 2017-01-20 11:02 | DIAGNOSTIC IMAGING REPORT ---
CHEST ONE VIEW PORTABLE CLINICAL HISTORY: s/p thoracentesis COMPARISON STUDY: Chest radiograph January 20, 2017 at 9:00 AM. FINDINGS: There is no pneumothorax. By radiography, the appearance of the large left pleural effusion is unchanged. There is a trace right pleural effusion. There is no evidence of pulmonary edema. IMPRESSION: 1. No pneumothorax. Large left pleural effusion which by radiography appears similar to prior exam. 2. Trace right pleural effusion. Electronically signed by: Sen Zheng M.D. 01/20/2017 11:01 AM Dictated Date/Time: 01/20/2017 10:59 AM
--- NOTE | 2017-01-20 11:12 | Pulmonary Consultation ---
History General Date of Service: Jan 20, 2017. Stated Complaint: Pleural Effusion, Shortness Of Breath HPI The patient is a 56 year old male who presents to [facility] with complaints of Pleural Effusion, Shortness Of Breath. The patient's primary care provider is Estevan Chan M.D.. Mr. Clemens is a 56-year-old male with past medical history of hypertension who presents with a 2 month history of worsening shortness of breath and dyspnea on exertion. Patient states in early November while climbing stairs he noticed that he could not reach a second floor. His symptoms progressed until he became more dyspneic with minimal exertion. Patient states that he's had chronic cough for the last 2 years. He initially presented with neck headache and thought he had Lyme disease. He was worked up and had chest x-ray and CT done at that time which showed a small left lower lobe pulmonary nodule. He has had surveillance CTs due to previous history of smoking which were stable. On December 31, patient states that he had a sharp left-sided flank pain that radiates to his back. He saw his PCP at that time he had a CT chest that showed a 3.4 cm masslike nodule in the left lower lobe with small pleural effusion.Mediastinal and left hilar lymph nodes are the upper limits of normal in size. He was subsequently treated with antibiotics and inhaler. He stopped using inhaler due to oral thrush which subsequently has resolved. Over the last 3-4 days he felt more dyspneic on exertion. He was unable to walk a few feet without having to sit for 10 minutes before recovery. He also complains of subjective fever and chills, nonproductive cough and 10 pound weight loss. He denies any sick contacts or recent travel. He denies any orthopnea, paroxysmal dyspnea or lower extremity edema. He saw PCP and had repeat imaging moderate to large L pleural effusion progression compared to 12/31/16, probable underlying pneumonia vs neoplasm. He denies any rashes or joint pains. He denies any genitourinary or gastrointestinal symptoms. Patient was scheduled to have a repeat CT chest done on 02/06/2017 however was able to have a expedited. Repeat CT done on 01/19/2017 shows interval increase in left pleural effusion with worsening left medial posterior airspace consolidation, infectious vs neoplastic; mediastinal lymphadenopathy, reactive vs metastatic and new small right pleural effusion. He was advised to come to the ER for further evaluation. . Historian: patient, spouse Onset: other (Several months) Complaint Status: worsened, persistent Review of Systems Constitutional: reports: as stated in HPI Eyes: reports: as stated in HPI ENT: reports: as stated in HPI Cardiovascular: reports: as stated in HPI Respiratory: reports: as stated in HPI Gastrointestinal: reports: as stated in HPI Genitourinary - Male: reports: as stated in HPI Musculoskeletal: reports: as stated in HPI Integumentary: reports: as stated in HPI Neurologic: reports: as stated in HPI Psychiatric: reports: as stated in HPI Endocrine: as stated in HPI Hematologic / Lymphatic: as stated in HPI Allergic / Immunologic: as stated in HPI All Other Symptoms All Other Systems: Reviewed and Negative Past Medical History Past Medical History: HTN Past Surgical History: Significant for wi the source unknownsdom teeth extraction. Family History Diabetes mellitus GRANDFATHER FH: cancer BROTHER (?umbilical CA) FH: hyperlipidemia MOTHER Hypertension FATHER Mother --parkinsons disease Father--complications of back surgery Brother--unmbilical carcinoma Social History Previous tobacco use of 30 ppd. Previous history of tobacco chewing. Alcohol use of 3-4 beers per day and case on the weekend. , lives at home with his . Has cats. 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 Grew up in [place], [place]. Smoking Status: Former Smoker Marital status: Housing status: lives with significant other Occupational Status: employed History of MDRO History of MDRO: No Allergies Coded Allergies: No Known Allergies (Unverified , 01/19/17) Current Medications Reported Home Medications Medications Dose Route/Sig Max Daily Dose Days Date Category Ventolin Hfa (Albuterol) 60 Puffs/5400 Mcg Aers 2 Inha PO Q6 01/19/17 Reported Augmentin 875-125 mg (Amoxicillin & Pot Clavulanate) 1 Tab Tab 1 Tab PO BID 8 01/19/17 Reported Toprol-Xl (Metoprolol Succinate) 100 Mg Tabcr 100 Mg PO DAILY 01/19/17 Reported Hyzaar 12.5MG/50MG (HCTZ/Losartan Potassium) Tab 1 Tab PO DAILY 01/19/17 Reported Aspirin Ec (Aspirin) 81 Mg Tab 81 Mg PO DAILY 12/31/16 Reported Physical Physical Exam Vital Signs: Date Time Temp Pulse Resp B/P (MAP) Pulse Ox O2 Delivery O2 Flow Rate FiO2 01/20/17 07:33 37.0 77 20 142/73 (96) 96 Nasal Cannula 2.0 01/20/17 07:30 96 Nasal Cannula 2.0 01/20/17 07:00 76 28 97 01/20/17 04:06 95 Nasal Cannula 2.0 01/20/17 04:01 83 20 152/87 (108) 96 01/20/17 04:00 77 25 94 01/20/17 03:00 75 30 96 01/20/17 02:00 78 25 95 01/20/17 01:00 78 26 95 01/20/17 00:01 37.5 84 28 141/95 (110) 96 2.0 01/20/17 00:00 95 Nasal Cannula 2.0 01/20/17 00:00 94 29 98 01/19/17 23:00 84 30 97 01/19/17 22:00 87 27 97 01/19/17 21:00 100 24 90 01/19/17 20:00 100 30 96 01/19/17 19:00 85 17 98 01/19/17 18:58 95 29 95 Nasal Cannula 2.0 01/19/17 18:52 37.5 86 28 169/89 93 Room Air 01/19/17 17:52 83 18 143/81 98 Room Air 01/19/17 16:22 87 01/19/17 16:22 88 16 141/76 94 Room Air 01/19/17 15:03 94 Room Air 01/19/17 14:30 93 Room Air 01/19/17 14:25 36.3 88 20 145/93 93 Room Air General Appearance: WD/WN, NO APPARENT DISTRESS, obese Head: NORMOCEPHALIC, ATRAUMATIC Eyes: PERRLA, NO DISCHARGE, EOMI, SCLERAE NORMAL, CONJUNCTIVAE NORMAL ENT: NORMAL MOUTH EXAM Neck: NORMAL RANGE OF MOTION, NO TENDERNESS, TRACHEA MIDLINE, NO STRIDOR, SUPPLE, NO LYMPHADENOPATHY Respiratory: other (Good air entry on right, decreased on the left. No crackles or wheezes.) Cardiovasular: REGULAR RATE/RHYTHM, NORMAL S1S2 Abdomen: NON TENDER, NORMAL BOWEL SOUNDS, NO REBOUND, other (obese) Back: NORMAL INSPECTION, NO MIDLINE TENDERNESS, NO CVA TENDERNESS, NO PARAVERTEBRAL TTP Upper Extremities: NO EDEMA, NO DEFORMITY, NORMAL ROM Lower Extremities: NO EDEMA, NO DEFORMITY, NORMAL ROM Pulses: dorsalis pedis (R), dorsalis pedis (L) Neuro: ALERT, ORIENTED x 3, NORMAL MOTOR EXAM, NORMAL SENSATION, NORMAL SPEECH , NORMAL MEMORY Psychiatric: NORMAL AFFECT, NO SUICIDAL IDEATION, CONTRACTS FOR SAFETY Diagnostics Labs Results Past 24 Hours Test 01/19/17 15:16 01/20/17 05:37 Range/Units White Blood Count 12.02 10.21 4.8-10.8 K/uL Red Blood Count 4.13 4.05 4.7-6.1 M/uL Hemoglobin 12.8 12.0 14.0-18.0 g/dL Hematocrit 36.6 36.4 42-52 % Mean Corpuscular Volume 88.6 89.9 80-100 fL Mean Corpuscular Hemoglobin 31.0 29.6 25-34 pg Mean Corpuscular Hemoglobin Concent 35.0 33.0 32-36 g/dl Platelet Count 316 292 130-400 K/uL Mean Platelet Volume 10.1 10.5 7.4-10.4 fL Neutrophils (%) (Auto) 76.5 % Lymphocytes (%) (Auto) 10.3 % Monocytes (%) (Auto) 11.6 % Eosinophils (%) (Auto) 0.7 % Basophils (%) (Auto) 0.2 % Neutrophils # (Auto) 9.20 1.4-6.5 K/uL Lymphocytes # (Auto) 1.24 1.2-3.4 K/uL Monocytes # (Auto) 1.40 0.11-0.59 K/uL Eosinophils # (Auto) 0.08 0-0.5 K/uL Basophils # (Auto) 0.02 0-0.2 K/uL RDW Standard Deviation 44.1 45.8 36.4-46.3 fL RDW Coefficient of Variation 13.5 13.8 11.5-14.5 % Immature Granulocyte % (Auto) 0.7 % Immature Granulocyte # (Auto) 0.08 0.00-0.02 K/uL Prothrombin Time 12.4 9.0-12.0 SECONDS Prothromb Time International Ratio 1.2 0.9-1.1 Activated Partial Thromboplast Time 25.7 21.0-31.0 SECONDS Partial Thromboplastin Ratio 1.0 Sodium Level 130 132 136-145 mmol/L Potassium Level 4.0 4.0 3.5-5.1 mmol/L Chloride Level 95 101 98-107 mmol/L Carbon Dioxide Level 25 25 21-32 mmol/L Anion Gap 10.0 6.0 3-11 mmol/L Blood Urea Nitrogen 23 14 7-18 mg/dl Creatinine 1.06 0.83 0.60-1.40 mg/dl Est Creatinine Clear Calc Drug Dose 97.7 124.8 ml/min Estimated GFR () 89.9 113.2 Estimated GFR (Non- 77.5 97.7 BUN/Creatinine Ratio 21.8 17.3 10-20 Random Glucose 102 106 70-99 mg/dl Calcium Level 8.7 8.3 8.5-10.1 mg/dl Magnesium Level 2.2 1.8-2.4 mg/dl Total Bilirubin 0.4 0.2-1 mg/dl Aspartate Amino Transf (AST/SGOT) 25 15-37 U/L Alanine Aminotransferase (ALT/SGPT) 34 12-78 U/L Alkaline Phosphatase 88 45-117 U/L Total Protein 7.3 6.4-8.2 gm/dl Albumin 2.1 3.4-5.0 gm/dl Globulin 5.2 2.5-4.0 gm/dl Albumin/Globulin Ratio 0.4 0.9-2 Hepatitis C Antibody Screen NEG NEG Microbiology Results 01/19/17 MRSA DNA Surveillance Screen - Final, Complete Specimen Negative for MRSA by DNA Probe 01/20/17 Gram Stain - Final, Resulted 01/20/17 Sputum Culture, Resulted Pending Diagnostic Radiology CT ANGIOGRAM OF THE CHEST CLINICAL HISTORY: Left-sided chest pain. Pleurisy. Shortness of breath. Abnormal chest x-ray. COMPARISON STUDY: Chest x-ray dated 12/31/2016 TECHNIQUE: Following the IV administration of 95 mL of Optiray-320, CT angiogram of the thorax was performed from the thoracic inlet to the lung bases utilizing the pulmonary embolus protocol. Images are reviewed in the axial, sagittal, and coronal planes. IV contrast was administered without complication. MIP imaging was performed. A dose lowering technique was utilized adhering to the principles of ALARA. CT DOSE: 687.66 mGy.cm FINDINGS: The visualized portions the upper abdomen reveal hepatic steatosis. Mediastinal and left hilar lymph nodes are the upper limits of normal in size. There is no pathologic axillary lymphadenopathy. There was no evidence of thoracic aortic dilatation. There were no pulmonary artery filling defects to indicate acute pulmonary embolism. There is a left pleural effusion. There is an area of masslike consolidation within the superior segment the left lower lobe, likely representing a focal pneumonia. Imaging subsequent to treatment will be necessary to document resolution. IMPRESSION: 1. No evidence of acute pulmonary or wasn't 2. 3.4 cm area of masslike consolidation within the superior segment of the left lower lobe, likely are presenting a focal pneumonia. Imaging subsequent to treatment is recommended to document resolution, and exclude an underlying neoplasm 3. Left pleural effusion CHEST 2 VIEWS ROUTINE CLINICAL HISTORY: Shortness of breath. Pleural effusion. COMPARISON STUDY: Chest CT January 19, 2017. FINDINGS: A large left pleural effusion is noted. This occupies the majority of the left hemithorax. Right lung is clear. Cardiac size is normal. There is no evidence of pulmonary edema. IMPRESSION: Large left pleural effusion which occupies the majority of the left hemithorax. Impression Assessment and Plan Loculated left pleural effusion Left lower lobe mass Hypertension Patient appears to have a loculated pleural effusion. He does have increasing size and left lower lobe pulmonary nodule. This may represent infection versus malignant etiology. He has been treated with several empiric antibiotics with no interval improvement. Due to the chronicity of his symptoms, I asked Dr. Bond, cardiothoracic surgery to perform thoracentesis versus Pleurx catheter. He will need bronchoscopy to evaluate left lower lobe pulmonary nodule. At the current time I would continue with empiric antibiotics to cover for pneumonia. Continue with albuterol nebulizers when necessary. I do not think that steroids are indicated at this time. I appreciate the consult. Please contact with any further questions or concerns.
--- NOTE | 2017-01-20 11:47 | OPERATIVE REPORT ---
DATE OF OPERATION: 01/20/2017 PROCEDURE NOTE DATE OF PROCEDURE: 01/20/2017 PROCEDURE: Left thoracentesis under ultrasound guidance. SURGEON: Dr. Bond. CABLE REELER: Misbah Aleman. ANESTHESIA: Local. SPECIFIC OF PROCEDURE: With the patient in an upright position sitting on the edge of the bed in the ICU ultrasound was used to connor the area that had a window into the fluid. It is interesting to note that there were marked septations throughout the fluid cavity pocket that we saw. This was marked and after prepping and draping in usual sterile fashion, 1% Xylocaine without epinephrine used with a 25 gauge needle to raise the skin wheal. A large needle was used to anesthetize the deeper subcutaneous tissues and then free flowing fluid was obtained. A large bore needle was placed into this and we got free flowing serous fluid. A guidewire was inserted, although there was some difficulty with this. The needle was removed, introducer sheath was slid over the guidewire were then removed and then a triple lumen catheter was slid into 17 cm and the guidewire removed. We drained between 50 and 75 mL total. The pH was 7.08. Despite moving the catheters several times we could not get any more fluid out. This was removed and an antimicrobial dressing was placed. Chest x-ray showed no change. Given the low pH I think we are probably dealing with an empyema that has been partially treated with p.o. antibiotics. I am going to proceed with a left thoracoscopy with a decortication on Sunday. It should be noted this patient is afebrile, stable with no leukocytosis. I attest to the content of the Intraoperative Record and any orders documented therein. Any exception s are noted below.
[2017-01-20 12:00] LABS: PLEURAL FLUID TOTAL PROTEIN 3.4 g/dl
[2017-01-20] MEDS: AZITHROMYCIN 250 MG TAB PO SCH (16:51)
[2017-01-20] MEDS ORDERED: IBUPROFEN 200 MG TAB PO STA (16:55)
--- NOTE | 2017-01-20 19:55 | Progress Note ---
Medicine Progress Note Date & Time of Visit: Jan 20, 2017 at 19:55. Subjective Patient complains of coughing which is worse at night gives him headaches. No overnight events noted. Tolerating PO. Denies any N/V. Also reports he has some constipation. No other complaints at this time. Objective Last 8 Hrs Date Time Temp Pulse Resp B/P (MAP) Pulse Ox O2 Delivery O2 Flow Rate FiO2 01/20/17 15:42 Nasal Cannula 2.0 01/20/17 15:41 36.4 85 18 146/84 (104) 95 Nasal Cannula 2.0 Humidified Oxygen Physical Exam: GENERAL: Patient is in no acute distress. HEENT: No acute trauma, normocephalic, mucous membranes moist, no nasal congestion, no scleral icterus. NECK: No stridor, trachea is midline. LUNGS: Diminished bilaterally, no wheeze, no rhonchi, breath sounds equal. HEART: Without murmurs gallops or rubs, regular rate and rhythm. ABDOMEN: Soft, nontender, bowel sounds positive EXTREMITIES: No cyanosis or edema, full range of motion of all the joints without pain or difficulty, no signs for acute trauma. NEUROLOGIC: Oriented x 3, no acute motor or sensory deficits, no focal weakness. SKIN: No rash, no jaundice, no diaphoresis. Laboratory Results: Last 24 Hours Test 01/20/17 05:37 01/20/17 10:45 01/20/17 15:33 White Blood Count 10.21 K/uL Red Blood Count 4.05 M/uL Hemoglobin 12.0 g/dL Hematocrit 36.4 % Mean Corpuscular Volume 89.9 fL Mean Corpuscular Hemoglobin 29.6 pg Mean Corpuscular Hemoglobin Concent 33.0 g/dl RDW Standard Deviation 45.8 fL RDW Coefficient of Variation 13.8 % Platelet Count 292 K/uL Mean Platelet Volume 10.5 fL Sodium Level 132 mmol/L Potassium Level 4.0 mmol/L Chloride Level 101 mmol/L Carbon Dioxide Level 25 mmol/L Anion Gap 6.0 mmol/L Blood Urea Nitrogen 14 mg/dl Creatinine 0.83 mg/dl Est Creatinine Clear Calc Drug Dose 124.8 ml/min Estimated GFR () 113.2 Estimated GFR (Non- 97.7 BUN/Creatinine Ratio 17.3 Random Glucose 106 mg/dl Calcium Level 8.3 mg/dl Pleural Fluid Total Protein 3.4 g/dl Pleural Fluid LDH 411 IU Pleural Fluid Glucose 45 mg/dl Lactate Dehydrogenase 147 U/L Total Protein 7.4 gm/dl Date/Time Source Procedure Growth Status 01/20/17 02:06 Sputum Expectorated Sputum Gram Stain - Final Resulted 01/20/17 02:06 Sputum Expectorated Sputum Sputum Culture Pending Resulted 01/20/17 10:45 Pleural Fluid (Thoracentesis) Left Acid Fast Stain Pending Received 01/20/17 10:45 Pleural Fluid (Thoracentesis) Left Mycobacterial Culture Pending Received 01/20/17 10:45 Pleural Fluid (Thoracentesis) Left Gram Stain - Final Resulted 01/20/17 10:45 Pleural Fluid (Thoracentesis) Left Bacterial Culture Pending Resulted Assessment & Plan SOB/PLEURAL EFFUSION: -pt presents with worsening pleural effusion on CT scan from previous on . -CT Chest: Interval increase in left pleural effusion with worsening left medial posterior airspace consolidation, infectious vs neoplastic. 2. mediastinal lymphadenopathy, reactive vs metastatic. 3. Small right pleural effusion, new. -demonstrates SOB with talking and exertion, which has worsened over past couple of weeks. -Initially treated with Levaquin for CAP, took 2.5 days Augmentin also. -slightly elevated WBC 12, afebrile -also has a known hx of a LLL pulmonary nodule, hx smoker >20 years -Pulm and CT surgery consulted, appreciate recommendations -CT surgery performed a thoracentesis and was able to get 50 ml fluid; the US showed multiple septations and cytology highly suspicious for an empyema. Plan is for OR on Sunday -continue duoneb Q4h prn -continue Rocephin, Zithromax day#2 -sputum culture -continue to hold ASA -Pulm mentioned probable bronchoscopy need in the near future HTN: -stable -continue metoprolol and hyzaar CHRONIC COUGH: -will provide tessalon perles and robitussin AC PRN CONSTIPATION: -miralax ordered Current Inpatient Medications: Current Inpatient Medications Medications (Trade) Dose Ordered Sig/Prabhjot Route Start Time Stop Time Status Last Admin Dose Admin Acetaminophen (Tylenol Tab) 650 mg Q4H PRN PO 01/19/17 17:00 02/18/17 16:59 Ondansetron HCl (Zofran Inj) 4 mg Q6H PRN IV 01/19/17 17:00 02/18/17 16:59 Albuterol/ Ipratropium (Duoneb) 3 ml Q4R PRN INH 01/19/17 17:00 02/18/17 16:59 01/19/17 18:58 3 ML HCTZ/Losartan Potassium (Hyzaar 50-12.5 Tab) 1 tab DAILY PO 01/20/17 09:00 02/19/17 08:59 01/20/17 07:25 1 TAB Metoprolol Succinate (Toprol Xl Tab) 100 mg DAILY PO 01/20/17 09:00 02/19/17 08:59 01/20/17 07:26 100 MG Azithromycin (Zithromax Tab) 250 mg DAILY@1700 PO 01/20/17 17:00 01/27/17 16:59 01/20/17 16:51 250 MG Ceftriaxone Sodium 1 gm/ Dextrose 50 ml @ 100 mls/hr Q24H IV 01/19/17 19:30 01/26/17 19:29 01/19/17 21:03 100 MLS/HR Albuterol (Ventolin Hfa Inhaler) 2 puffs Q6H PRN INH 01/20/17 06:45 02/19/17 06:44
[2017-01-20] MEDS ORDERED: GUAIFENESIN/CODEINE 200MG/20MG 10ML UDC PO PRN (20:00)
[2017-01-20] MEDS ORDERED: POLYETHYLENE (MIRALAX) 17 GM PACK PO PRN (20:00)
[2017-01-20] MEDS: BENZONATATE 100MG CAP PO SCH (20:58)
[2017-01-20] MEDS: CEFTRIAXONE SOD INJ 1 GM in DEXTROSE 5% ADD-VANTAGE 50ML 50 ML IV SCH (20:59)
[2017-01-21 04:00] VITALS: BP 120/75; PULSE 68; TEMP 36.6; O2SAT 96
[2017-01-21 05:50] LABS: HEMATOCRIT 37.5 % (42-52); HEMOGLOBIN 12.5 g/dL (14.0-18.0); MEAN CELL VOLUME 90.6 fL (80-100); MEAN CORPUSCULAR HEMOGLOBIN 30.2 pg (25-34); MEAN CORPUSCULAR HGB CONC 33.3 g/dl (32-36); MEAN PLATELET VOLUME 10.2 fL (7.4-10.4); PLATELET COUNT 297 K/uL (130-400); RED CELL DISTRIBUTION WIDTH CV 13.7 % (11.5-14.5); WHITE BLOOD COUNT 9.92 K/uL (4.8-10.8)
[2017-01-21 06:17] LABS: CALCIUM 8.4 mg/dl (8.5-10.1); CREATININE 0.88 mg/dl (0.60-1.40); POTASSIUM 3.6 mmol/L (3.5-5.1)
--- NOTE | 2017-01-21 07:31 | DIAGNOSTIC IMAGING REPORT ---
CHEST ONE VIEW PORTABLE HISTORY: 56 years-old Male pleural effusion follow-up study in a patient with left pleural effusion COMPARISON: Chest radiograph 01/20/2017, chest CT 01/19/2017 TECHNIQUE: Portable AP view of the chest FINDINGS: Cardiac silhouette is within normal limits. Large left pleural effusion appears unchanged from comparison with left perihilar opacities suggesting atelectasis. Trace right pleural effusion with probable right basilar compressive atelectasis. Bones appear grossly intact. No overt pulmonary edema. IMPRESSION: 1. Unchanged appearance of the large left pleural effusion. 2. Trace right pleural effusion. 3. No pneumothorax. The above report was generated using voice recognition software. It may contain grammatical, syntax or spelling errors. Electronically signed by: Jack De Paz M.D. 01/21/2017 7:30 AM Dictated Date/Time: 01/21/2017 7:28 AM
--- NOTE | 2017-01-21 07:54 | SURGERY PROGRESS NOTE ---
DATE: 01/21/2017 SUBJECTIVE: Mr. Rosario was seen today. He looks quite good. I performed a thoracentesis on him yesterday, I believe he has a partially treated empyema. He is on room air now. His x-ray from this morning is unchanged with a large loculated effusion on the left. He has been afebrile. I had a long discussion with the patient and his yesterday about the left thoracoscopy, which we have scheduled for tomorrow. I have explained that this is an aggressive measure to eradicate this infection once for all. They understand. I have also explained that there is a small possibility we are not dealing with an empyema. Given his history of cigarette smoking, there is still a chance we are dealing with a neoplastic process, although I tend to think we are dealing with an infectious etiology.
[2017-01-21] MEDS: POLYETHYLENE (MIRALAX) 17 GM PACK PO SCH (08:05)
[2017-01-21] MEDS: BENZONATATE 100MG CAP PO SCH ×3 (08:07→19:50)
[2017-01-21 08:09] VITALS: BP 133/81; PULSE 87; TEMP 36.7; O2SAT 96
--- NOTE | 2017-01-21 08:49 | Anesthesiology Progress Note ---
Anesthesia Progress Note Date of Service Jan 21, 2017. Progress Notes Mr. Rosario is slated for Left VATS wtih decortication with bronch on 01/22/[address] Bond. PMH significant for HTN, HLD, occasional GERD and prior tobacco usage (quit both cigarettes and chew approximately 3 years ago). Presented to ER with progressive SOB and found to have significant left sided pleural effusion. CXR demonstrates large left pleural effusion. EKG NSR, HR 81 with incomplete RBBB. Labs notable for mild hyponatremia. Airway shows MP 1 with decreased breath sounds at left lung base. Anesthetic plan discussed and patient consented for GETA (likely NILSA) with +/- arterial line. All questions answered and patient appears appropriate for surgery tomorrow.
[2017-01-21] MEDS: METOPROLOL SUCC 50MG EXT REL TAB PO SCH (09:20)
[2017-01-21] MEDS: LOSARTAN/HCTZ 50-12.5 EA TAB PO SCH (09:20)
--- NOTE | 2017-01-21 13:29 | Pulmonology Progress Note ---
Pulmonary Progress Note Date of Service Jan 21, 2017. Attending Dr. Nance Subjective Patient seen and examined this morning. He is out of bed to chair. He denies any left sided chest pain. Shortness of breath mildly improved. Still having mild intermittent nonproductive cough. Objective Vital signs reviewed. MAXIMUM TEMPERATURE 36.7, blood pressure 120/75, pulse 60 -87, respiratory rate 20 saturating 96% on room air. General: Awake alert oriented 3, no acute respiratory distress. CVS: S1-S2, regular rate and rhythm. Chest/lungs: Clear entry on the right, decreased breath sounds on left. No crackles, no wheezes. Abdomen: obese/nontender and nondistended bowel sounds positive Extremities: No cyanosis, no clubbing, no edema bilaterally. Labs reviewed. Sputum cultures 01/20/2017-moderate normal mila present Pleural fluid bacterial culture 01/20/2017-no growth to date Pleural fluid acid-fast bacilli 01/20/2017-no AFB seen Imaging reviewed. CHEST ONE VIEW PORTABLE HISTORY: 56 years-old Male pleural effusion follow-up study in a patient with left pleural effusion COMPARISON: Chest radiograph 01/20/2017, chest CT 01/19/2017 TECHNIQUE: Portable AP view of the chest FINDINGS: Cardiac silhouette is within normal limits. Large left pleural effusion appears unchanged from comparison with left perihilar opacities suggesting atelectasis. Trace right pleural effusion with probable right basilar compressive atelectasis. Bones appear grossly intact. No overt pulmonary edema. IMPRESSION: 1. Unchanged appearance of the large left pleural effusion. 2. Trace right pleural effusion. 3. No pneumothorax. Medications reviewed. Assessment & Plan Loculated left pleural effusion Left lower lobe mass Hypertension left-sided empyema consistent with low glucose and pH on left-sided thoracentesis.. He also has a increasing left lower lobe pulmonary nodule. Etiology is infectious versus malignancy. Patient is scheduled for videoa assisted thoracoscopy with decortication tomorrow 01/22/[address] Bond. He will need bronchoscopy to evaluate left lower lobe pulmonary nodule at some point. At the current time I would continue with empiric antibiotics to cover for pneumonia. Continue with albuterol nebulizers when necessary. I will sign off this case for Dr. Hurtado who will be taking over pulmonary service tomorrow. We will continue to follow peripherally. Data Medications: Current Inpatient Medications Medications (Trade) Dose Ordered Sig/Prabhjot Route Start Time Stop Time Status Last Admin Dose Admin Acetaminophen (Tylenol Tab) 650 mg Q4H PRN PO 01/19/17 17:00 02/18/17 16:59 Ondansetron HCl (Zofran Inj) 4 mg Q6H PRN IV 01/19/17 17:00 02/18/17 16:59 Albuterol/ Ipratropium (Duoneb) 3 ml Q4R PRN INH 01/19/17 17:00 02/18/17 16:59 01/19/17 18:58 3 ML HCTZ/Losartan Potassium (Hyzaar 50-12.5 Tab) 1 tab DAILY PO 01/20/17 09:00 02/19/17 08:59 01/21/17 09:20 1 TAB Metoprolol Succinate (Toprol Xl Tab) 100 mg DAILY PO 01/20/17 09:00 02/19/17 08:59 01/21/17 09:20 100 MG Azithromycin (Zithromax Tab) 250 mg DAILY@1700 PO 01/20/17 17:00 01/27/17 16:59 01/20/17 16:51 250 MG Ceftriaxone Sodium 1 gm/ Dextrose 50 ml @ 100 mls/hr Q24H IV 01/19/17 19:30 01/26/17 19:29 01/20/17 20:59 100 MLS/HR Albuterol (Ventolin Hfa Inhaler) 2 puffs Q6H PRN INH 01/20/17 06:45 02/19/17 06:44 Benzonatate (Tessalon Perles Cap) 100 mg TID PO 01/20/17 21:00 02/19/17 20:59 01/21/17 08:07 100 MG Codeine Phosphate/ Guaifenesin (Robitussin-AC Sugar Free Syrup) 10 ml Q6H PRN PO 01/20/17 20:00 02/19/17 19:59 01/21/17 06:28 10 ML Polyethylene (Miralax Powder Packet) 17 gm DAILY PRN PO 01/20/17 20:00 02/19/17 19:59 Polyethylene (Miralax Powder Packet) 17 gm DAILY PO 01/21/17 09:00 02/20/17 08:59 Vital Signs: Date Time Temp Pulse Resp B/P (MAP) Pulse Ox O2 Delivery O2 Flow Rate FiO2 01/21/17 11:31 Room Air 01/21/17 08:09 36.7 87 20 133/81 (98) 96 Room Air 01/21/17 07:40 Room Air 01/21/17 04:00 36.6 68 20 120/75 (90) 96 Room Air 01/21/17 04:00 Room Air 01/21/17 00:00 Room Air 01/20/17 23:59 36.6 77 20 111/68 (82) 98 Room Air 01/20/17 20:00 Nasal Cannula 2.0 Humidified Oxygen 01/20/17 19:56 87 18 134/77 (96) 94 Nasal Cannula 2.0 Humidified Oxygen 01/20/17 15:42 Nasal Cannula 2.0 01/20/17 15:41 36.4 85 18 146/84 (104) 95 Nasal Cannula 2.0 Humidified Oxygen Laboratory Results: Last 24 Hours Test 01/20/17 15:33 01/21/17 05:28 Lactate Dehydrogenase 147 U/L Total Protein 7.4 gm/dl White Blood Count 9.92 K/uL Red Blood Count 4.14 M/uL Hemoglobin 12.5 g/dL Hematocrit 37.5 % Mean Corpuscular Volume 90.6 fL Mean Corpuscular Hemoglobin 30.2 pg Mean Corpuscular Hemoglobin Concent 33.3 g/dl RDW Standard Deviation 46.0 fL RDW Coefficient of Variation 13.7 % Platelet Count 297 K/uL Mean Platelet Volume 10.2 fL Sodium Level 132 mmol/L Potassium Level 3.6 mmol/L Chloride Level 100 mmol/L Carbon Dioxide Level 28 mmol/L Anion Gap 4.0 mmol/L Blood Urea Nitrogen 14 mg/dl Creatinine 0.88 mg/dl Est Creatinine Clear Calc Drug Dose 117.7 ml/min Estimated GFR () 110.5 Estimated GFR (Non- 95.4 BUN/Creatinine Ratio 16.2 Random Glucose 130 mg/dl Calcium Level 8.4 mg/dl
[2017-01-21 15:01] VITALS: BP 137/77; PULSE 83; TEMP 36.5; O2SAT 94
[2017-01-21] MEDS: AZITHROMYCIN 250 MG TAB PO SCH (16:34)
[2017-01-21 19:46] VITALS: BP 121/71; PULSE 82; TEMP 37.2; O2SAT 94
[2017-01-21] MEDS: CEFTRIAXONE SOD INJ 1 GM in DEXTROSE 5% ADD-VANTAGE 50ML 50 ML IV SCH (19:50)
--- NOTE | 2017-01-21 19:52 | Progress Note ---
Medicine Progress Note Date & Time of Visit: Jan 21, 2017 at 19:52. Subjective Patient states he feels well today; he is anxious about surgery tomorrow but also anxious to find out what is causing the pleural effusion. States he slept well. Cough has been better controlled. No overnight events noted. No other complaints. Objective Last 8 Hrs Date Time Temp Pulse Resp B/P (MAP) Pulse Ox O2 Delivery O2 Flow Rate FiO2 01/21/17 19:46 37.2 82 18 121/71 (88) 94 Room Air 01/21/17 15:45 Room Air 01/21/17 15:01 36.5 83 18 137/77 (97) 94 Room Air Physical Exam: GENERAL: Patient is in no acute distress. HEENT: No acute trauma, normocephalic, mucous membranes moist, no nasal congestion, no scleral icterus. Conjunctivae clear. NECK: No stridor, trachea is midline. LUNGS: Diminished left side from base to upper 1/3, no wheeze, no rhonchi HEART: Without murmurs gallops or rubs, regular rate and rhythm. ABDOMEN: Soft, nontender, bowel sounds positive, no hepatosplenomegaly EXTREMITIES: No cyanosis or edema NEUROLOGIC: Oriented x 3, no acute motor or sensory deficits, no focal weakness. SKIN: No rash, no jaundice, no diaphoresis. Laboratory Results: Last 24 Hours Test 01/21/17 05:28 White Blood Count 9.92 K/uL Red Blood Count 4.14 M/uL Hemoglobin 12.5 g/dL Hematocrit 37.5 % Mean Corpuscular Volume 90.6 fL Mean Corpuscular Hemoglobin 30.2 pg Mean Corpuscular Hemoglobin Concent 33.3 g/dl RDW Standard Deviation 46.0 fL RDW Coefficient of Variation 13.7 % Platelet Count 297 K/uL Mean Platelet Volume 10.2 fL Sodium Level 132 mmol/L Potassium Level 3.6 mmol/L Chloride Level 100 mmol/L Carbon Dioxide Level 28 mmol/L Anion Gap 4.0 mmol/L Blood Urea Nitrogen 14 mg/dl Creatinine 0.88 mg/dl Est Creatinine Clear Calc Drug Dose 117.7 ml/min Estimated GFR () 110.5 Estimated GFR (Non- 95.4 BUN/Creatinine Ratio 16.2 Random Glucose 130 mg/dl Calcium Level 8.4 mg/dl Assessment & Plan SOB/PLEURAL EFFUSION: -pt presents with worsening pleural effusion on CT scan from previous on . -CT Chest: Interval increase in left pleural effusion with worsening left medial posterior airspace consolidation, infectious vs neoplastic. 2. mediastinal lymphadenopathy, reactive vs metastatic. 3. Small right pleural effusion, new. -demonstrates SOB with talking and exertion, which has worsened over past couple of weeks. -Initially treated with Levaquin for CAP, took 2.5 days Augmentin also. -slightly elevated WBC 12, afebrile -also has a known hx of a LLL pulmonary nodule, hx smoker >20 years -Pulm and CT surgery consulted, appreciate recommendations -CT surgery performed a thoracentesis and was able to get 50 ml fluid; the US showed multiple septations and cytology highly suspicious for an empyema. Plan is for OR on Sunday for VATS -continue duoneb Q4h prn -continue Rocephin, Zithromax day#3 -sputum culture -continue to hold ASA -Pulm mentioned probable bronchoscopy need in the near future HTN: -stable -continue metoprolol and hyzaar CHRONIC COUGH: improved -will provide tessalon perles and robitussin AC PRN CONSTIPATION: resolved -miralax ordered Current Inpatient Medications: Current Inpatient Medications Medications (Trade) Dose Ordered Sig/Prabhjot Route Start Time Stop Time Status Last Admin Dose Admin Acetaminophen (Tylenol Tab) 650 mg Q4H PRN PO 01/19/17 17:00 02/18/17 16:59 Ondansetron HCl (Zofran Inj) 4 mg Q6H PRN IV 01/19/17 17:00 02/18/17 16:59 Albuterol/ Ipratropium (Duoneb) 3 ml Q4R PRN INH 01/19/17 17:00 02/18/17 16:59 01/19/17 18:58 3 ML HCTZ/Losartan Potassium (Hyzaar 50-12.5 Tab) 1 tab DAILY PO 01/20/17 09:00 02/19/17 08:59 01/21/17 09:20 1 TAB Metoprolol Succinate (Toprol Xl Tab) 100 mg DAILY PO 01/20/17 09:00 02/19/17 08:59 01/21/17 09:20 100 MG Azithromycin (Zithromax Tab) 250 mg DAILY@1700 PO 01/20/17 17:00 01/27/17 16:59 01/21/17 16:34 250 MG Ceftriaxone Sodium 1 gm/ Dextrose 50 ml @ 100 mls/hr Q24H IV 01/19/17 19:30 01/26/17 19:29 01/21/17 19:50 100 MLS/HR Albuterol (Ventolin Hfa Inhaler) 2 puffs Q6H PRN INH 01/20/17 06:45 02/19/17 06:44 Benzonatate (Tessalon Perles Cap) 100 mg TID PO 01/20/17 21:00 02/19/17 20:59 01/21/17 19:50 100 MG Codeine Phosphate/ Guaifenesin (Robitussin-AC Sugar Free Syrup) 10 ml Q6H PRN PO 01/20/17 20:00 02/19/17 19:59 01/21/17 06:28 10 ML Polyethylene (Miralax Powder Packet) 17 gm DAILY PRN PO 01/20/17 20:00 02/19/17 19:59 Polyethylene (Miralax Powder Packet) 17 gm DAILY PO 01/21/17 09:00 02/20/17 08:59
[2017-01-21 23:47] VITALS: BP 142/83; PULSE 87; TEMP 36.5; O2SAT 95
[2017-01-22] VITALS (36 sets, daily range): BP systolic 90–132; BP diastolic 40–100; PULSE 70–92; TEMP 36.7–37.2; O2SAT 88–99
[2017-01-22] MEDS: POLYETHYLENE (MIRALAX) 17 GM PACK PO SCH (07:33)
[2017-01-22] MEDS: BENZONATATE 100MG CAP PO SCH ×3 (07:33→21:28)
[2017-01-22] MEDS: LOSARTAN/HCTZ 50-12.5 EA TAB PO SCH (07:34)
[2017-01-22] MEDS: METOPROLOL SUCC 50MG EXT REL TAB PO SCH (07:34)
--- NOTE | 2017-01-22 07:59 | SURGICAL CONSULTATION ---
DATE OF CONSULTATION: 01/20/2017 REASON FOR CONSULTATION: Enlarging left pleural effusion. HISTORY OF PRESENT ILLNESS: Arnel Rosario is a 56-year-old male who really does not have a lot of medical problems other than the fact that he smoked for about 30 years. He quit this few years ago. He states that about two and a half years ago on the summer of 2014, he developed a cough, which has persisted since then despite the fact that he is not smoking. He used to work out, but states he has not in the last few years. About 2 months ago, his dyspnea on exertion increased dramatically. He underwent a CT scan on 12/31/2016 after being treated for pneumonia. He started feeling a bit better, but then increasing shortness of breath was noted. He states he cannot even get up a flight of stairs now without being "wiped out." He has had some "hot flashes," but denies chills. He has occasional sputum, but really nothing to speak of. He states that sometimes he coughs for several minutes without getting any sputum up. He also had increasing edema in the lower leg. He has had decreased appetite. He represented back today as his pleural effusion worsened. He now has a much larger left pleural effusion as he did 3 weeks ago. He also has some enlarging mediastinal lymph nodes. The CT scan from 12/31/2016 showed consolidation in all likelihood of the superior segment of the left lower lobe, although it is possible that a neoplasm could have been present. I'd hate to see him with this large loculated effusion. I had a long talk with the patient and his . He does not appear toxic whatsoever. In fact, he states he feels "great now." He is on oxygen. PAST MEDICAL HISTORY: 1. History of cigarette smoking. 2. The 5-mm lung nodules, which are chronic. 3. Hypertension. 4. Obesity. 5. Hyperlipidemia. 6. Long history of cigarette smoking. 7. Daily alcohol use. PAST SURGICAL HISTORY: None. MEDICATIONS (at home): 1. Augmentin for the last several days. 2. Aspirin. 3. Hyzaar. 4. Metoprolol. 5. Ventolin. ALLERGIES: No known drug allergies. SOCIAL HISTORY: The patient is originally from [place]. He started smoking in his mid 20s and smoked up into his mid 50s. He states that he smoked about a half a pack per day, but then would smoke "lot on the weekends." He also drinks 3-4 beers a day and can drink up to a case on the weekend. 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 He has no children. FAMILY MEDICAL HISTORY: Mother and father are still living. Mother has Parkinson's disease and hypertension. Father has problems with lumbosacral disc disease. He states he has an interesting story about a brother having "umbilical cancer " that was removed when he was younger and he has "no belly button." I am not sure if this was an urachal carcinoma or not. His other sibling is healthy. REVIEW OF SYSTEMS: The patient has lost about 10 pounds due to lack of appetite over the last 6 weeks. He denies any wound breakdown. He has had more swelling in his left leg than his right. He has no joint effusions. He has had no neurologic events such as amaurosis fugax, transient ischemic attack or seizures. He denies any visual or auditory changes. He has had no other GI or complaints. He has no chest pain or palpitations, although he did have pleuritic type pain when he first developed these symptoms 2 months ago. PHYSICAL EXAMINATION: GENERAL: This is a 5-foot 9-inch, 261-pound male who is awake, alert and oriented. HEENT: Extraocular movements are intact. Pupils are equal, round, reactive. Sclerae are anicteric. He has no nasolabial flattening. His tongue is midline. Oral mucosa is moist without leukoplakia or oropharyngeal lesions. His teeth are in fairly good repair, although he is missing several. NECK: Supple. He has no neck vein distention, thyromegaly or tracheal deviation. He has no carotid bruits. As would be expected, he has markedly decreased breath sounds on the left, especially laterally and posteriorly. HEART: He has a regular rate and rhythm of his heart. ABDOMEN: Obese, protuberant, soft, nontender. EXTREMITIES: He has 1+ edema on the left, trace edema on the right and has some signs of some mild chronic venous insufficiency. He has palpable dorsalis pedis pulses. He has no joint effusions. NEUROLOGIC: He is awake, alert and oriented with no focal deficits. DATA: It is important to note that his white count this morning is only 10,210. Hemoglobin 12. His BUN and creatinine are normal. Albumin is only 2.1 this morning, but it was 3.4 last month. His x-ray shows a loculated effusion. This has worsened considerably. ASSESSMENT AND PLAN: Loculated left pleural effusion. I believe this patient may have an empyema that has been partially treated with antibiotics as an outpatient. It is also possible he has a malignancy. At this point, we are going to do a diagnostic thoracentesis and make a decision based on that.
--- NOTE | 2017-01-22 08:53 | History & Physical Bridge Note ---
H&P Re-Evaluation Bridge Note: I have examined the patient, reviewed the History & Physical and in the interval since the performance of the History & Physical I have noted the following changes of clinical significance: No changes noted
[2017-01-22] MEDS ORDERED: FENTANYL CITRATE INJ 50 MCG/1 ML 2 ML VIAL ONE ×3 (09:16→18:21)
[2017-01-22] MEDS ORDERED: MIDAZOLAM HCL 1 MG/ML 2ML VIAL ONE (09:16)
--- NOTE | 2017-01-22 11:56 | Pulmonology Progress Note ---
Pulmonary Progress Note Date of Service Jan 22, 2017. Attending Dr. Hurtado Subjective Patient is feeling slightly improved this morning. He is anticipating decortication by Dr. Bond this afternoon. He is noted to have a large nodule in the left lung as well. Dr. Bond is considering wedge of that area as well during the procedure this afternoon. Otherwise, the patient may need bronchoscopy/needle biopsy of the area following decortication. AFB culture pending. AFB smear negative. Bacterial cultures negative from pleural fluid. Sputum culture showed normal mila. No new labs. Pathology pending. Patient continues on IV Ceftriaxone and Azithromycin. Objective Vital signs reviewed. MAXIMUM TEMPERATURE 36.7, blood pressure 120/75, pulse 60 -87, respiratory rate 20 saturating 96% on room air. General: Awake alert oriented 3, no acute respiratory distress. CVS: S1-S2, regular rate and rhythm. Chest/lungs: Clear entry on the right, decreased breath sounds on left. No crackles, no wheezes. Abdomen: obese/nontender and nondistended bowel sounds positive Extremities: No cyanosis, no clubbing, no edema bilaterally. Labs reviewed. Sputum cultures 01/20/2017-moderate normal mila present Pleural fluid bacterial culture 01/20/2017-no growth to date Pleural fluid acid-fast bacilli 01/20/2017-no AFB seen Imaging reviewed. CHEST ONE VIEW PORTABLE HISTORY: 56 years-old Male pleural effusion follow-up study in a patient with left pleural effusion VS Reviewed: Afebrile HR 92 RR 16 BP 126/87 SaO2 94-96% on room air General: Patient is awake, alert, cooperative, and in no acute distress. Obese Head: Normocephalic, Atraumatic. ENT: PERRLA, No discharge, EOMI, Sclera normal Neck: Normal ROM. Trachea midline. No stridor Respiratory: Decreased breath sounds at left base. No respiratory distress. No accessory muscle use. Cardiovascular: Regular rate and rhythm. No murmur appreciate. Normal S1/S2. Back: Normal inspection. Extremities: No edema, cyanosis. Normal ROM Neuro: Alert, Oriented x 3. CN II-XII grossly intact. Sensation and motor function grossly intact. Psych: Mood and affect are normal. Assessment & Plan Loculated left pleural effusion Left lower lobe mass Hypertension left-sided empyema consistent with low glucose and pH on left-sided thoracentesis.. He also has a increasing left lower lobe pulmonary nodule. Etiology is infectious versus malignancy. He is planned to have VATs with decortication completed this afternoon with possible resection of the left lower lobe nodule. Currently continued on empiric abx therapy- recommend continuing pending further workup. Continue with albuterol nebulizers when necessary. Will await further workup by Dr. Bond. Could plan for bronchoscopic evaluation/biopsies of LLL nodule if unable to find with VATS. Patient examined and reviewed and plan agreed upon. Data Medications: Current Inpatient Medications Medications (Trade) Dose Ordered Sig/Prabhjot Route Start Time Stop Time Status Last Admin Dose Admin Acetaminophen (Tylenol Tab) 650 mg Q4H PRN PO 01/19/17 17:00 02/18/17 16:59 Ondansetron HCl (Zofran Inj) 4 mg Q6H PRN IV 01/19/17 17:00 02/18/17 16:59 Albuterol/ Ipratropium (Duoneb) 3 ml Q4R PRN INH 01/19/17 17:00 02/18/17 16:59 01/19/17 18:58 3 ML HCTZ/Losartan Potassium (Hyzaar 50-12.5 Tab) 1 tab DAILY PO 01/20/17 09:00 02/19/17 08:59 01/22/17 07:34 1 TAB Metoprolol Succinate (Toprol Xl Tab) 100 mg DAILY PO 01/20/17 09:00 02/19/17 08:59 01/22/17 07:34 100 MG Azithromycin (Zithromax Tab) 250 mg DAILY@1700 PO 01/20/17 17:00 01/27/17 16:59 01/21/17 16:34 250 MG Ceftriaxone Sodium 1 gm/ Dextrose 50 ml @ 100 mls/hr Q24H IV 01/19/17 19:30 01/26/17 19:29 01/21/17 19:50 100 MLS/HR Albuterol (Ventolin Hfa Inhaler) 2 puffs Q6H PRN INH 01/20/17 06:45 02/19/17 06:44 Benzonatate (Tessalon Perles Cap) 100 mg TID PO 01/20/17 21:00 02/19/17 20:59 01/21/17 19:50 100 MG Codeine Phosphate/ Guaifenesin (Robitussin-AC Sugar Free Syrup) 10 ml Q6H PRN PO 01/20/17 20:00 02/19/17 19:59 01/21/17 06:28 10 ML Polyethylene (Miralax Powder Packet) 17 gm DAILY PRN PO 01/20/17 20:00 02/19/17 19:59 Polyethylene (Miralax Powder Packet) 17 gm DAILY PO 01/21/17 09:00 02/20/17 08:59 Vital Signs: Date Time Temp Pulse Resp B/P (MAP) Pulse Ox O2 Delivery O2 Flow Rate FiO2 01/22/17 11:34 36.7 82 18 132/85 (101) 94 Room Air 01/22/17 08:00 Room Air 01/22/17 07:51 36.7 92 16 126/87 (100) 94 01/22/17 07:10 37.2 87 20 121/82 95 Room Air 01/22/17 04:00 Room Air 01/22/17 03:47 37.2 87 20 121/82 (95) 95 01/22/17 00:00 Room Air 01/21/17 23:47 36.5 87 18 142/83 (102) 95 Room Air 01/21/17 20:00 Room Air 01/21/17 19:46 37.2 82 18 121/71 (88) 94 Room Air 01/21/17 15:45 Room Air 01/21/17 15:01 36.5 83 18 137/77 (97) 94 Room Air
--- NOTE | 2017-01-22 11:57 | Progress Note ---
Medicine Progress Note Date & Time of Visit: Jan 22, 2017 at 11:57. Subjective Patient seen this AM, prior to surgery, denies any complaints, states he is anxious to get it done and hopefully find out the cause. 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 No overnight events noted. Objective Last 8 Hrs Date Time Temp Pulse Resp B/P (MAP) Pulse Ox O2 Delivery O2 Flow Rate FiO2 01/22/17 11:34 36.7 82 18 132/85 (101) 94 Room Air 01/22/17 08:00 Room Air 01/22/17 07:51 36.7 92 16 126/87 (100) 94 01/22/17 07:10 37.2 87 20 121/82 95 Room Air 01/22/17 04:00 Room Air Physical Exam: GENERAL: Patient is in no acute distress. HEENT: No acute trauma, normocephalic, mucous membranes moist, no nasal congestion, no scleral icterus. Conjunctivae clear. NECK: No stridor, trachea is midline. LUNGS: Diminished left side from base to upper 1/3, no wheeze, no rhonchi HEART: Without murmurs gallops or rubs, regular rate and rhythm. ABDOMEN: Soft, nontender, bowel sounds positive, no hepatosplenomegaly EXTREMITIES: No cyanosis or edema NEUROLOGIC: Oriented x 3, no acute motor or sensory deficits, no focal weakness. SKIN: No rash, no jaundice, no diaphoresis. Assessment & Plan SOB/PLEURAL EFFUSION: -pt presents with worsening pleural effusion on CT scan from previous on . -CT Chest: Interval increase in left pleural effusion with worsening left medial posterior airspace consolidation, infectious vs neoplastic. 2. mediastinal lymphadenopathy, reactive vs metastatic. 3. Small right pleural effusion, new. -demonstrates SOB with talking and exertion, which has worsened over past couple of weeks. -Initially treated with Levaquin for CAP, took 2.5 days Augmentin also. 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 Plan is for OR today for VATS -continue duoneb Q4h prn -continue Rocephin, Zithromax day#4 -sputum culture -continue to hold ASA -Pulm mentioned probable bronchoscopy need in the near future HTN: -stable -continue metoprolol and hyzaar CHRONIC COUGH: improved -will provide tessalon perles and robitussin AC PRN CONSTIPATION: resolved -miralax ordered Current Inpatient Medications: Current Inpatient Medications Medications (Trade) Dose Ordered Sig/Prabhjot Route Start Time Stop Time Status Last Admin Dose Admin Acetaminophen (Tylenol Tab) 650 mg Q4H PRN PO 01/19/17 17:00 02/18/17 16:59 Ondansetron HCl (Zofran Inj) 4 mg Q6H PRN IV 01/19/17 17:00 02/18/17 16:59 Albuterol/ Ipratropium (Duoneb) 3 ml Q4R PRN INH 01/19/17 17:00 02/18/17 16:59 01/19/17 18:58 3 ML HCTZ/Losartan Potassium (Hyzaar 50-12.5 Tab) 1 tab DAILY PO 01/20/17 09:00 02/19/17 08:59 01/22/17 07:34 1 TAB Metoprolol Succinate (Toprol Xl Tab) 100 mg DAILY PO 01/20/17 09:00 02/19/17 08:59 01/22/17 07:34 100 MG Azithromycin (Zithromax Tab) 250 mg DAILY@1700 PO 01/20/17 17:00 01/27/17 16:59 01/21/17 16:34 250 MG Ceftriaxone Sodium 1 gm/ Dextrose 50 ml @ 100 mls/hr Q24H IV 01/19/17 19:30 01/26/17 19:29 01/21/17 19:50 100 MLS/HR Albuterol (Ventolin Hfa Inhaler) 2 puffs Q6H PRN INH 01/20/17 06:45 02/19/17 06:44 Benzonatate (Tessalon Perles Cap) 100 mg TID PO 01/20/17 21:00 02/19/17 20:59 01/21/17 19:50 100 MG Codeine Phosphate/ Guaifenesin (Robitussin-AC Sugar Free Syrup) 10 ml Q6H PRN PO 01/20/17 20:00 02/19/17 19:59 01/21/17 06:28 10 ML Polyethylene (Miralax Powder Packet) 17 gm DAILY PRN PO 01/20/17 20:00 02/19/17 19:59 Polyethylene (Miralax Powder Packet) 17 gm DAILY PO 01/21/17 09:00 02/20/17 08:59
[2017-01-22] MEDS ORDERED: BUPIVACAINE LIPOSOME 1/3% 266 MG/20 ML VIAL INFIL ONE (14:09)
[2017-01-22] MEDS ORDERED: SODIUM CHLORIDE 0.9% PF 50 ML VIAL ONE (14:09)
[2017-01-22] MEDS ORDERED: CEFAZOLIN SOD 1 GM VIAL ONE (15:20)
[2017-01-22] MEDS ORDERED: SUCCINYLCHOLINE CHLORIDE 20 MG/ML 10 ML VIAL IV ONE (15:51)
[2017-01-22] MEDS ORDERED: LIDOCAINE HCL 2% 2 ML VIAL (20MG/ML) ONE (15:51)
[2017-01-22] MEDS ORDERED: ONDANSETRON INJ 2 MG/ML 2 ML VIAL ONE (15:51)
[2017-01-22] MEDS ORDERED: CISATRACURIUM BESYLATE IV SOLN 2 MG/ML 10 ML VIAL ONE (15:52)
[2017-01-22] MEDS ORDERED: LIDOCAINE 2% 20 MG/ML 5ML SYR IV ONE (17:10)
[2017-01-22] MEDS ORDERED: PHENYLEPHRINE HCL INJ 10 MG/ML VIAL ONE (17:13)
[2017-01-22] MEDS ORDERED: HYDROmorphone INJ 1 MG/ML SYR IV PRN (17:45)
[2017-01-22] MEDS ORDERED: ONDANSETRON INJ 2 MG/ML 2 ML VIAL IV PRN ×2 (17:45→18:45)
[2017-01-22] MEDS ORDERED: LABETALOL HCL IV 5 MG/ML 20ML IV PRN (17:45)
[2017-01-22] MEDS ORDERED: ATROPINE SULFATE 0.1 MG/ML 5ML SYR IV PRN (17:45)
[2017-01-22] MEDS ORDERED: FLUMAZENIL 0.1 MG/1 ML 10 ML VIAL IV PRN (17:45)
[2017-01-22] MEDS ORDERED: NALOXONE HCL 0.4 MG/1 ML VIAL/CARP IV PRN (17:45)
[2017-01-22] MEDS ORDERED: EpHEDrine SULFATE INJ 50 MG/ML AMP IV PRN (17:45)
[2017-01-22] MEDS ORDERED: PROMETHAZINE HCL INJ 12.5 MG in SODIUM CHLORIDE 0.9% 50ML 50 ML IV PRN (17:45)
[2017-01-22] MEDS ORDERED: OXYCODONE HCL IR 5 MG TAB (IMMEDIATE RELEASE) PO PRN (18:45)
[2017-01-22] MEDS ORDERED: MoRPHine SULFATE 2 MG/ML CARP IV PRN (18:45)
--- NOTE | 2017-01-22 19:18 | Anesthesiology Progress Note ---
Anesthesia Post Op Note Date & Time Jan 22, 2017 at 19:17 Vital Signs Pain Intensity: 0 Vital Signs Past 12 Hours Date Time Temp Pulse Resp B/P (MAP) Pulse Ox O2 Delivery O2 Flow Rate FiO2 01/22/17 19:05 70 22 109/66 95 Non-Rebreather 10 01/22/17 18:55 71 18 106/66 95 Non-Rebreather 15 01/22/17 18:49 36.7 78 18 100/77 92 Non-Rebreather 15 01/22/17 12:00 Room Air 01/22/17 11:34 36.7 82 18 132/85 (101) 94 Room Air 01/22/17 08:00 Room Air 01/22/17 07:51 36.7 92 16 126/87 (100) 94 Notes Mental Status: alert / awake / arousable, participated in evaluation Pt Amnestic to Procedure: Yes Nausea / Vomiting: adequately controlled Pain: adequately controlled Airway Patency, RR, SpO2: stable & adequate BP & HR: stable & adequate Hydration State: stable & adequate Anesthetic Complications: no major complications apparent
--- NOTE | 2017-01-22 19:21 | DIAGNOSTIC IMAGING REPORT ---
SINGLE VIEW CHEST CLINICAL HISTORY: Postoperative examination. Status post decortication. FINDINGS: An AP, portable, upright chest radiograph is compared to study dated 01/21/2017. Correlation is made with chest CT dated 01/19/2017. The examination is degraded by portable technique and patient rotation. The heart is top normal for projection. There are 2 left-sided chest tubes in place. A trace left apical pneumothorax is noted. There is pleural fluid and consolidation at the left lung base. The volume of pleural fluid has significantly decreased from yesterday. The right lung is grossly clear. The skeletal structures are osteopenic. Degenerative change is seen throughout the spine. Subcutaneous gas is noted along the left chest wall. IMPRESSION: 1. Two left-sided chest tubes are in place. A trace left apical pneumothorax is identified. 2. There is pleural fluid and consolidation at the left lung base. The volume of fluid has significantly decreased from yesterday. Electronically signed by: Jonel Serrano M.D. 01/22/2017 7:19 PM Dictated Date/Time: 01/22/2017 7:17 PM
--- NOTE | 2017-01-22 20:22 | Critical Care Consultation ---
Critical Care Consultation Date of Consultation: Jan 22, 2017. Attending Physician: Karol Akhtar D.O. Reason for Consultation: Status post LEFT-sided VATS with decortication of loculated pleural effusion with concerns for empyema. History of Present Illness Patient is a 56-year-old male who was admitted to the ICU status post LEFT- sided VATS procedure with decortication of extensively loculated pleural effusion and possible empyema. He had been treated for the past 3 weeks with antibiotics for presumed pneumonia and most recently had progression of his effusion prompting concerns for worsening disease process. Patient underwent VATS today by Dr. Bond after having undergoing diagnostic/therapeutic thoracentesis in the days prior. Patient is noted in the ICU for post cardiovascular monitoring. Upon arrival, the patient is complaining of some pain to the LEFT upper chest. He offers no other complaints at this point. Patient with a history of hypertension and significant tobacco use in the past. Has recently quit smoking. Drinks daily. Reports last drink was Sunday. Denies history of withdraw symptoms. Past Medical/Surgical History Medical Problems: (1) Borderline hyperlipidemia (2) HTN (hypertension) (3) Hx of solitary pulmonary nodule (4) Pleural effusion (5) Shortness of breath Surgical Problems: (1) Hx of cardiovascular stress test (2) Hx of colonoscopy Family History Diabetes mellitus GRANDFATHER FH: cancer BROTHER (?umbilical CA) FH: hyperlipidemia MOTHER Hypertension FATHER Social History Smoking Status: Former Smoker Smokeless Tobacco Use: No Alcohol Use: 1-2 beers most days of week, on weekends 6 beers Drug Use: none Marital Status: Housing Status: lives with significant other Occupation Status: employed Allergies Coded Allergies: No Known Allergies (Unverified , 01/19/17) Home Medications Scheduled Albuterol (Ventolin Hfa), 2 INHA PO Q6 Amoxicillin & Pot Clavulanate (Augmentin 875-125 mg), 1 TAB PO BID Aspirin (Aspirin Ec), 81 MG PO DAILY Hctz/Losartan (Hyzaar 12.5MG/50MG), 1 TAB PO DAILY Metoprolol Succ (Toprol Xl) (Toprol-Xl ), 100 MG PO DAILY Current Inpatient Medications Current Inpatient Medications Medications (Trade) Dose Ordered Sig/Prabhjot Route Start Time Stop Time Status Last Admin Dose Admin Acetaminophen (Tylenol Tab) 650 mg Q4H PRN PO 01/19/17 17:00 02/18/17 16:59 Future Hold Ondansetron HCl (Zofran Inj) 4 mg Q6H PRN IV 01/19/17 17:00 02/18/17 16:59 Albuterol/ Ipratropium (Duoneb) 3 ml Q4R PRN INH 01/19/17 17:00 02/18/17 16:59 01/19/17 18:58 3 ML HCTZ/Losartan Potassium (Hyzaar 50-12.5 Tab) 1 tab DAILY PO 01/20/17 09:00 02/19/17 08:59 01/22/17 07:34 1 TAB Metoprolol Succinate (Toprol Xl Tab) 100 mg DAILY PO 01/20/17 09:00 02/19/17 08:59 01/22/17 07:34 100 MG Azithromycin (Zithromax Tab) 250 mg DAILY@1700 PO 01/20/17 17:00 01/27/17 16:59 01/21/17 16:34 250 MG Ceftriaxone Sodium 1 gm/ Dextrose 50 ml @ 100 mls/hr Q24H IV 01/19/17 19:30 01/26/17 19:29 01/21/17 19:50 100 MLS/HR Albuterol (Ventolin Hfa Inhaler) 2 puffs Q6H PRN INH 01/20/17 06:45 02/19/17 06:44 Benzonatate (Tessalon Perles Cap) 100 mg TID PO 01/20/17 21:00 02/19/17 20:59 01/21/17 19:50 100 MG Codeine Phosphate/ Guaifenesin (Robitussin-AC Sugar Free Syrup) 10 ml Q6H PRN PO 01/20/17 20:00 02/19/17 19:59 01/21/17 06:28 10 ML Polyethylene (Miralax Powder Packet) 17 gm DAILY PRN PO 01/20/17 20:00 02/19/17 19:59 Polyethylene (Miralax Powder Packet) 17 gm DAILY PO 01/21/17 09:00 02/20/17 08:59 Hydromorphone HCl (Dilaudid Inj) 0.25 mg Q5M PRN IV 01/22/17 17:45 01/22/17 22:45 Naloxone HCl (Narcan Inj) 0.2 mg Q2M PRN IV 01/22/17 17:45 01/22/17 22:45 Flumazenil (Romazicon Inj) 0.2 mg Q2M PRN IV 01/22/17 17:45 01/22/17 22:45 Ondansetron HCl (Zofran Inj) 4 mg ONE PRN IV 01/22/17 17:45 01/22/17 22:45 Promethazine HCl 12.5 mg/Sodium Chloride 50.5 ml @ 202 mls/hr ONE PRN IV 01/22/17 17:45 01/22/17 22:45 Labetalol HCl (Normodyne IV) 5 mg Q5M PRN IV 01/22/17 17:45 01/22/17 22:45 Ephedrine Sulfate (EpHEDrine SULFATE INJ) 5 mg Q5M PRN IV 01/22/17 17:45 01/22/17 22:45 Atropine Sulfate (Atropine Sulfate 0.1MG/Ml Inj) 0.5 mg Q1M PRN IV 01/22/17 17:45 01/22/17 22:45 Losartan Potassium (coZAAR TAB) 50 mg QAM PO 01/23/17 09:00 02/22/17 08:59 Acetaminophen 1000 mg/Empty Bag 100 ml @ 400 mls/hr Q8H IV 01/22/17 22:00 02/21/17 21:59 Oxycodone HCl (Roxicodone Immediate Rel Tab) 5 mg Q6H PRN PO 01/22/17 18:45 02/05/17 18:44 Enoxaparin Sodium (Lovenox Inj) 40 mg DAILY SQ 01/23/17 09:00 02/22/17 08:59 Dextrose/Sodium Chloride 1,000 ml @ 100 mls/hr Q10H IV 01/22/17 18:45 02/21/17 18:44 Ondansetron HCl (Zofran Inj) 4 mg Q4H PRN IV 01/22/17 18:45 02/21/17 18:44 Docusate Sodium (coLACE CAP) 100 mg BID PO 01/22/17 21:00 02/21/17 20:59 Ketorolac Tromethamine (Toradol Inj) 15 mg Q8H IV. 01/22/17 20:00 01/24/17 12:01 Metoclopramide HCl (Reglan Inj) 10 mg Q8 IV. 01/22/17 22:00 01/23/17 21:59 Morphine Sulfate (MoRPHine SULFATE INJ) Q1H PRN IV 01/22/17 18:45 02/05/17 18:44 Review of Systems A complete 10-point Review of Systems was discussed with the patient, with pertinent positives and negatives listed in the History of Present Illness. All remaining Review of Systems questions can be considered negative unless otherwise specified. Physical Exam Date Time Temp Pulse Resp B/P (MAP) Pulse Ox O2 Delivery O2 Flow Rate FiO2 01/22/17 19:30 36.6 72 20 100/54 94 Oxymask 8 Non-Rebreather 01/22/17 19:15 75 20 108/65 94 Oxymask 10 Non-Rebreather 01/22/17 19:05 70 22 109/66 95 Non-Rebreather 10 01/22/17 18:55 71 18 106/66 95 Non-Rebreather 15 01/22/17 18:49 36.7 78 18 100/77 92 Non-Rebreather 15 01/22/17 12:00 Room Air 01/22/17 11:34 36.7 82 18 132/85 (101) 94 Room Air 01/22/17 08:00 Room Air 01/22/17 07:51 36.7 92 16 126/87 (100) 94 01/22/17 07:10 37.2 87 20 121/82 95 Room Air 01/22/17 04:00 Room Air 01/22/17 03:47 37.2 87 20 121/82 (95) 95 01/22/17 00:00 Room Air 01/21/17 23:47 36.5 87 18 142/83 (102) 95 Room Air VITAL SIGNS - Vital signs and nursing notes were reviewed. GENERAL - 56-year-old male appearing his stated age who is in no acute distress. Communicates well with provider and answers questions appropriately. SKIN - Without rashes. LEFT sided thoracostomy tube in place with dressing intact. HEAD - NC/AT. EYES - PERRL with EOMI bilaterally. NOSE - Midline and without cyanosis. MOUTH/OROPHARYNX - Without perioral cyanosis. NECK - Neck with FROM. Supple to palpation. LUNGS - LEFT Side thoracostomy tube in place. Chest wall symmetric without accessory muscle use, intercostals retractions, or central cyanosis. Normal vesicular breath sounds CTA B/L. No wheezes, rales, or rhonchi appreciated. CARDIAC - RRR with S1/S2. No murmur, rubs, or gallops appreciated. ABDOMEN - Abdominal contour protuberant without pulsations or visible masses. BS normoactive all four quadrants. No tenderness, palpable masses, hepatosplenomegaly, or ascites noted. EXTREMITIES - No clubbing or peripheral cyanosis. No pretibial edema present. +3 /5 radial and dorsalis pedis pulses palpated throughout. +5/5 strength noted in UE/LE bilaterally. NEUROLOGIC - Cranial nerves II through XII grossly intact. PSYCH - A&Ox3 and cooperates fully with examiner. Pt is very pleasant and interacts well with examiner. Diagnostic Results Radiological imaging and reports were reviewed by myself. Radiologist's Interpretation as follows: SINGLE VIEW CHEST CLINICAL HISTORY: Postoperative examination. Status post decortication. FINDINGS: An AP, portable, upright chest radiograph is compared to study dated 01/21/2017. Correlation is made with chest CT dated 01/19/2017. The examination is degraded by portable technique and patient rotation. The heart is top normal for projection. There are 2 left-sided chest tubes in place. A trace left apical pneumothorax is noted. There is pleural fluid and consolidation at the left lung base. The volume of pleural fluid has significantly decreased from yesterday. The right lung is grossly clear. The skeletal structures are osteopenic. Degenerative change is seen throughout the spine. Subcutaneous gas is noted along the left chest wall. IMPRESSION: 1. Two left-sided chest tubes are in place. A trace left apical pneumothorax is identified. 2. There is pleural fluid and consolidation at the left lung base. The volume of fluid has significantly decreased from yesterday. Assessment & Plan (1) Loculated pleural effusion (2) Status post thoracostomy tube placement (3) Hx of solitary pulmonary nodule (4) Pleural effusion (5) Borderline hyperlipidemia (6) Shortness of breath (7) HTN (hypertension) Reason Critically Ill: Status post LEFT-sided VATS with decortication of loculated pleural effusion with concerns for empyema. Neuro - * CAM ICU: NEGATIVE * Post-Surgical pain management per surgical team: Morphine/Toradol PRN. * Daily Alcohol use with most recent drink ~Sunday: * No history of withdraw symptoms/withdraw seizures. * Regardless, patient nearing the window of withdraw concerns. * Will add CIWA protocol in the event of any changes. Ophthalmologic - * Bilateral Corneal Abrasions: * Per exam below. * Ciloxan Ointment QID x7 days - this should be continued to completion. * Lacri Lube drops for comfort. * Dimmed lights. * Pain control - currently receiving Toradol/Morphine PRN for pain. Cardiac - * History of Hypertension: * Continue home medications. * Monitor on telemetry s/p VATS w/ decortication. * EKGs for chest pain. * Monitor closely for the development of A-Fib in the setting of recent chest procedure. Respiratory - * s/p LEFT-Sided VATS with Decortication of Extensively Loculated Plural Effusion with Concerns for Empyema: * Thoracostomy tube and Pleurx Catheters in place. * Suction per surgical protocol. * Monitor for any change in output. * Encourage regular incentive spirometry. * Small LEFT sided apical pneumothorax on postoperative CXR: * To be expected s/p procedure. * Patient currently with suction protocols. * CXR for any changes. * Currently on OxyMask - titrate down O2 as tolerated. * Nebs q4h/PRN * Continue per Thoracic Surgery Recommendations. GI - * Progress diet as tolerates. * AHA diet RENAL/LYTES - * Monitor daily - correct electrolytes appropriately. * IVF - D5W 1/2 NSS @100mL/hr. - * Nance Catheter in place. * Strict I&Os ENDO - * No h/o DM or Thyroid Disease. * Monitor BSGs in the setting of recent stress of surgery - ISS per protocol if needed. HEME - * Stable H&H - will monitor. ID - * Loculated LEFT-Sided Pleural Effusion with Concerns for Empyema: * Currently on Rocephin/Azithromycin. * Cultures Pending. * Monitor Fever Curve. LINES/IV ACCESS - * PIVs intact. * RIGHT Radial A-Line in place. DVT PROPHYLAXIS - * Lovenox Daily. * SCDs I have personally spent 35 minutes of critical care time in the direct management of this patient. This is a life/limb threatening event. This includes time spent evaluating patient, direct bedside care, chart review, placing orders, interpretation of diagnostic studies, discussion with consultants, patient, and family members, as well as other required patient management activities. This time is exclusive of all separately billable procedures, and teaching time and separate from and in addition to any other critical care service time. Thank you for this consultation allow us to be part of this patient's care. Please refer to my attending physician's documentation for any further recommendations. After my initial evaluation, the patient began to complain of bilateral eye discomfort described as "burning". He reports photophobia. Here denies any blurry or double vision. He denies any headaches, dizziness, or lightheadedness. He reports no nausea or vomiting. On evaluation, conjunctiva is injected mildly with some slight tearing bilaterally. Verbal consent was obtained prior to performing the procedure. Alcaine drops were placed in the bilateral eyes with near immediate relief of symptoms. Fluorescein stain was applied to the bilateral eyes. Utilizing blue-light I was able to appreciate linear transverse uptake through the bilateral sclera just inferior to the pupillary rim. Length of each abrasion are 2/3 the diameter of the eye. At this time, orders were placed for Ciloxan ophthalmic ointment and Lacril Lube drops. This should be continued for the next 7 days. the case discussed and reviewed. agree with the above.
[2017-01-22] MEDS: AZITHROMYCIN 250 MG TAB PO SCH (20:32)
[2017-01-22] MEDS: DOCUSATE SODIUM 100 MG CAP PO SCH (20:32)
[2017-01-22] MEDS: KETOROLAC TROMETHAMINE 15 MG/ML VIAL IV. SCH (20:33)
[2017-01-22] MEDS: D5W AND 1/2NSS 1,000 ML IV SCH (21:00)
[2017-01-22] MEDS: CEFTRIAXONE SOD INJ 1 GM in DEXTROSE 5% ADD-VANTAGE 50ML 50 ML IV SCH (21:28)
[2017-01-22] MEDS ORDERED: LORAZEPAM 2 MG/ML 1 ML VIAL IV PRN (21:30)
--- NOTE | 2017-01-22 21:46 | OPERATIVE REPORT ---
DATE OF OPERATION: 01/22/2017 PREOPERATIVE DIAGNOSIS: Probable empyema (complicated loculated left pleural effusion). POSTOPERATIVE DIAGNOSIS: Same. PROCEDURE: 1. Left thoracoscopic empyemectomy. 2. Extensive decortication. 3. Wedge resection, left lower lobe. SURGEON: Shilo Bond MD. MOLDING FITTER: NATALIA Arias (MrYakelin Durán was present for the entire case and expertly handled the camera and was assistant speech language pathologist in closing incisions). ANESTHESIA: General anesthesia endotracheal intubation. INDICATION FOR PROCEDURE AND FINDINGS: Arnel Rosario is a 56-year-old male with a history of smoking, although he is not smoking now. He presented with a couple month history of "just not feeling well." He had a CT scan which showed some loculated effusion and a possible mass in the superior segment of left upper lobe. He was placed on antibiotics and returned only to have a larger fusion, so he was admitted to the hospital for antibiotics. I saw him 48 hours ago and taped him and his fluid was ascitic with a pH of 7.09. However, we saw no growth. He had really no white count, no fevers; however, he has been quite sick. Given this, we elected to proceed with a decortication. On 01/22/2017, the patient underwent a left thoracoscopy. I essentially performed an empyemectomy and drained several pockets of barbara pus that has had gram positive cocci on the Gram stain. I then did an extensive decortication of the entire chest. We sent off a large amount of pleural peel. We did an Exparel block. He tolerated it well and was extubated in the room. DESCRIPTION OF PROCEDURE: The patient was brought to the operating room. He was placed in supine position. General anesthesia induced and endotracheal intubation was performed. After prepping and draping in usual sterile fashion, 3 separate incisions were made. There was 1 incision made it was about a 2 cm incision made at center of interspace below the tip of the scapula. Another incision was made about the fifth interspace anterior axillary line and another about the eighth interspace closer to the mid axillary line. I placed these 2 ports after the placed the first port. We drained well over a liter of purulent fluid. I collected some of this, but it appeared to be fairly serous. There were multiple septations. With the use of a thoracoscopy clamp, I removed much of this and sutured off piecemeal. The lung was obviously trapped. The pleura was quite thickened. I got into several pockets of pus and this was cultured and this had multiple gram positive cocci. I then meticulously and extensively removed all of peel of the left lower lobe as well as much of the left upper lobe posteriorly and laterally. I the fissures also. Attention turned down to the inferior pulmonary ligament and removed a large amount of parietal pleural plaque and peel as well as visceral. After meticulous taking all this down, I was happy with the result. We had some air leak, but it was not very large. 266 mg of Exparel mixed with 60 mL total of saline and injected from the 2nd to the 11th rib and the interspace. We carefully irrigated this out and controlled bleeding with the Aquamantys. I was happy with the expansion of the left upper and left lower lobe. A PleurX catheter was placed through a separate stab wound and laid along the diaphragmatic dome of the pleura as well as posteriorly. A 24-Montserratian chest tube was then directed towards the apex. These were both sutured with heavy silk suture. It should be noted 24-Montserratian chest tube was brought out through the anterior thoracoscopy port. The other 2 incisions were closed with 0 Vicryl to close the muscle layers and then 4-0 Monocryl in running subcuticular fashion to approximate the wound edges. He tolerated it quite well, was extubated in the room. He was transported back to the post-anesthesia care unit in stable condition. I attest to the content of the Intraoperative Record and any orders documented therein. Any exception s are noted below.
[2017-01-22] MEDS: METOCLOPRAMIDE HCL INJ 5 MG/ML 2 ML VIAL IV. SCH (22:28)
[2017-01-22] MEDS: ACETAMINOPHEN IV 1,000 MG in EMPTY BAG 0 ML IV SCH (22:29)
[2017-01-22] MEDS ORDERED: PROPARACAINE HCL 0.5% OP SOLN 15 ML BTL OP STA (22:43)
[2017-01-23] VITALS (28 sets, daily range): BP systolic 96–144; BP diastolic 49–92; PULSE 53–75; TEMP 36.5–37; O2SAT 84–100
[2017-01-23] MEDS: ARTIFICIAL TEARS OP OINT 3.5 GM TUBE OP PRN ×3 (00:01→15:53)
[2017-01-23] MEDS: D5W AND 1/2NSS 1,000 ML IV SCH (04:13)
[2017-01-23] MEDS: KETOROLAC TROMETHAMINE 15 MG/ML VIAL IV. SCH ×3 (04:13→20:29)
[2017-01-23 05:41] LABS: HEMATOCRIT 35.6 % (42-52); HEMOGLOBIN 11.8 g/dL (14.0-18.0); MEAN CELL VOLUME 90.6 fL (80-100); MEAN CORPUSCULAR HGB CONC 33.1 g/dl (32-36); MEAN PLATELET VOLUME 10.1 fL (7.4-10.4); PLATELET COUNT 368 K/uL (130-400); RED CELL DISTRIBUTION WIDTH SD 46.7 fL (36.4-46.3); WHITE BLOOD COUNT 14.87 K/uL (4.8-10.8)
[2017-01-23] MEDS: METOCLOPRAMIDE HCL INJ 5 MG/ML 2 ML VIAL IV. SCH ×2 (05:58→14:03)
[2017-01-23] MEDS: ACETAMINOPHEN IV 1,000 MG in EMPTY BAG 0 ML IV SCH (06:12)
[2017-01-23 06:27] LABS: CALCIUM 8.2 mg/dl (8.5-10.1); CREATININE 1.35 mg/dl (0.60-1.40); POTASSIUM 4.5 mmol/L (3.5-5.1)
[2017-01-23 06:36] LABS: BASO % 0.1 %; BASO ABS # 0.02 K/uL (0-0.2); EOS % 0.1 %; EOS ABS # 0.01 K/uL (0-0.5); IG# 0.12 K/uL (0.00-0.02); LYMPH % 10.6 %; LYMPH ABS # 1.58 K/uL (1.2-3.4); MONO % 5.4 %; MONO ABS # 0.81 K/uL (0.11-0.59); NEUT ABS # 12.33 K/uL (1.4-6.5)
--- NOTE | 2017-01-23 06:59 | DIAGNOSTIC IMAGING REPORT ---
CHEST ONE VIEW PORTABLE HISTORY: 56 years-old Male decortication follow-up study status post decortication COMPARISON: Chest radiograph 01/22/2017 TECHNIQUE: Portable AP view of the chest FINDINGS: Cardiac silhouette is again mildly enlarged. Linear subsegmental right perihilar opacity is unchanged suggesting scarring/atelectasis. 2 left-sided chest tubes are in unchanged positioning. Tiny left apical pneumothorax is unchanged, pleural separation of 4 mm. Subjacent edema along left lateral chest wall has slightly increased. Persistent left basilar consolidation with left pleural fluid, mildly improved from yesterday. Bones are grossly intact. IMPRESSION: 1. Unchanged positioning of left-sided chest tubes with persistent tiny left apical pneumothorax. 2. Improved aeration of the left lung base with persistent small left pleural effusion and left basilar consolidation. The above report was generated using voice recognition software. It may contain grammatical, syntax or spelling errors. Electronically signed by: Jack De Paz M.D. 01/23/2017 6:57 AM Dictated Date/Time: 01/23/2017 6:55 AM
[2017-01-23] MEDS: CIPROFLOXACIN HCL 3.5 GM TUBE OP SCH ×4 (07:30→20:31)
[2017-01-23] MEDS: DOCUSATE SODIUM 100 MG CAP PO SCH ×2 (07:31→20:32)
[2017-01-23] MEDS: METOPROLOL SUCC 50MG EXT REL TAB PO SCH (07:31)
[2017-01-23] MEDS: BENZONATATE 100MG CAP PO SCH ×3 (07:31→20:31)
[2017-01-23] MEDS: LOSARTAN/HCTZ 50-12.5 EA TAB PO SCH (07:32)
[2017-01-23] MEDS: LOSARTAN POTASSIUM 50 MG TAB PO SCH (07:32)
[2017-01-23] MEDS: POLYETHYLENE (MIRALAX) 17 GM PACK PO SCH ×2 (07:32→09:00)
[2017-01-23] MEDS: ENOXAPARIN 40 MG/0.4 ML SYR SQ SCH (07:33)
--- NOTE | 2017-01-23 07:57 | Anesthesiology Progress Note ---
Anesthesia Post Op Note Date & Time Jan 23, 2017 at 07:56 Vital Signs Pain Intensity: 0.0 Vital Signs Past 12 Hours Date Time Temp Pulse Resp B/P (MAP) Pulse Ox O2 Delivery O2 Flow Rate FiO2 01/23/17 06:01 36.6 69 25 97/65 (76) 96 Room Air 119/66 (83) 01/23/17 06:00 63 22 102/66 (78) 96 01/23/17 05:00 67 23 01/23/17 04:01 63 13 106/88 (94) 99 Oxymask 2.0 132/65 (87) 01/23/17 04:00 61 15 112/92 (99) 100 01/23/17 04:00 Oxymask 01/23/17 03:04 53 17 99/67 (78) 100 114/55 (74) 01/23/17 03:01 67 22 105/67 (80) 97 Oxymask 2.0 01/23/17 03:00 68 23 106/68 (81) 99 01/23/17 02:16 61 20 113/64 (80) 96 111/57 (75) 01/23/17 02:01 37.0 59 14 104/68 (80) 97 Oxymask 2.0 01/23/17 02:00 64 15 96/82 (87) 99 01/23/17 01:46 67 21 119/65 (83) 96 01/23/17 01:32 64 23 129/62 (84) 99 01/23/17 01:16 60 23 144/73 (96) 86 01/23/17 01:01 60 18 125/56 (79) 94 01/23/17 01:00 60 16 106/49 (68) 98 119/54 (75) 01/23/17 00:46 61 20 142/87 (105) 84 01/23/17 00:31 62 20 143/72 (95) 85 01/23/17 00:16 62 17 105/85 (92) 95 01/23/17 00:01 75 25 97 01/23/17 00:00 64 15 92 115/71 (86) 01/23/17 00:00 Oxymask 01/22/17 23:15 77 16 103/48 (66) 95 01/22/17 23:01 76 19 104/46 (65) 93 01/22/17 23:00 73 16 108/48 (68) 89 01/22/17 22:46 72 116/56 (76) 93 01/22/17 22:45 74 23 102/49 (66) 92 01/22/17 22:31 71 107/51 (69) 91 01/22/17 22:30 79 16 96/50 (65) 93 01/22/17 22:16 75 101/48 (65) 92 01/22/17 22:15 72 19 98/48 (65) 91 01/22/17 22:01 73 104/46 (65) 92 01/22/17 22:00 36.9 76 95 01/22/17 21:46 76 99/49 (66) 93 01/22/17 21:45 73 91 01/22/17 21:31 80 18 109/60 (76) 96 01/22/17 21:30 81 15 99 01/22/17 21:16 82 16 97 01/22/17 21:15 80 21 97 01/22/17 21:01 74 17 105/50 (68) 96 01/22/17 21:01 74 17 105/50 (68) 96 Oxymask 2.0 01/22/17 21:00 77 22 98/50 (66) 96 01/22/17 20:55 88 20 110/56 (74) 98 Oxymask 01/22/17 20:47 80 19 97 Oxymask 2.0 01/22/17 20:40 78 22 123/55 (77) 97 Oxymask 01/22/17 20:32 36.7 83 22 124/53 (76) 97 Oxymask 01/22/17 20:25 80 24 97/58 (71) 97 Oxymask 6.0 01/22/17 20:24 84 22 100/61 (74) 93 Oxymask 01/22/17 20:16 80 107/43 (64) 95 Oxymask 01/22/17 20:10 74 20 107/46 (66) 95 Oxymask 8.0 01/22/17 20:01 81 26 104/40 (61) 89 Oxymask 01/22/17 20:00 Oxymask Notes Mental Status: alert / awake / arousable, participated in evaluation Pt Amnestic to Procedure: Yes Nausea / Vomiting: adequately controlled Pain: adequately controlled Airway Patency, RR, SpO2: stable & adequate BP & HR: stable & adequate Hydration State: stable & adequate Anesthetic Complications: no major complications apparent
[2017-01-23] MEDS ORDERED: FLUMAZENIL 0.1 MG/1 ML 10 ML VIAL IV PRN (08:15)
[2017-01-23] MEDS ORDERED: LABETALOL HCL IV 5 MG/ML 20ML IV PRN (08:15)
[2017-01-23] MEDS ORDERED: ONDANSETRON INJ 2 MG/ML 2 ML VIAL IV PRN (08:15)
[2017-01-23] MEDS ORDERED: EpHEDrine SULFATE INJ 50 MG/ML AMP IV PRN (08:15)
[2017-01-23] MEDS ORDERED: PROMETHAZINE HCL INJ 12.5 MG in SODIUM CHLORIDE 0.9% 50ML 50 ML IV PRN (08:15)
[2017-01-23] MEDS ORDERED: NALOXONE HCL 0.4 MG/1 ML VIAL/CARP IV PRN (08:15)
[2017-01-23] MEDS ORDERED: HYDROmorphone INJ 0.5 MG/0.5 ML SYR IV PRN (08:15)
[2017-01-23] MEDS ORDERED: ATROPINE SULFATE 0.1 MG/ML 5ML SYR IV PRN (08:15)
--- NOTE | 2017-01-23 08:25 | SURGERY PROGRESS NOTE ---
DATE: 01/23/2017 Mr. Rosario is seen 1 day status post left thoracoscopy with extensive decortication and evacuation of empyema cavity. He looks great today. His chest x-ray looks quite good. He is on room air. He is sitting up eating a regular breakfast. He did marginated a bit. His white count went up little bit over 14,000 but he had no fevers. His lungs sound good. His incisions are clean. We are going to move him up to a regular room and stop his IV and remove his Nance catheter. I am quite pleased with how good he looks. He drained about 500 mL of sero-bloody fluid from his chest tube and he has also been putting out some serous fluid through his PleurX. Probably continue his chest tube for at least 1 more day.
--- NOTE | 2017-01-23 10:03 | Anesthesiology Progress Note ---
Anesthesia Post Op Note Date & Time Jan 23, 2017 at 09:59 Vital Signs Pain Intensity: 0.0 Vital Signs Past 12 Hours Date Time Temp Pulse Resp B/P (MAP) Pulse Ox O2 Delivery O2 Flow Rate FiO2 01/23/17 08:53 36.6 69 25 96 01/23/17 08:05 96 Room Air 01/23/17 06:01 36.6 69 25 97/65 (76) 96 Room Air 119/66 (83) 01/23/17 06:00 63 22 102/66 (78) 96 01/23/17 05:00 67 23 01/23/17 04:01 63 13 106/88 (94) 99 Oxymask 2.0 132/65 (87) 01/23/17 04:00 61 15 112/92 (99) 100 01/23/17 04:00 Oxymask 01/23/17 03:04 53 17 99/67 (78) 100 114/55 (74) 01/23/17 03:01 67 22 105/67 (80) 97 Oxymask 2.0 01/23/17 03:00 68 23 106/68 (81) 99 01/23/17 02:16 61 20 113/64 (80) 96 111/57 (75) 01/23/17 02:01 37.0 59 14 104/68 (80) 97 Oxymask 2.0 01/23/17 02:00 64 15 96/82 (87) 99 01/23/17 01:46 67 21 119/65 (83) 96 01/23/17 01:32 64 23 129/62 (84) 99 01/23/17 01:16 60 23 144/73 (96) 86 01/23/17 01:01 60 18 125/56 (79) 94 01/23/17 01:00 60 16 106/49 (68) 98 119/54 (75) 01/23/17 00:46 61 20 142/87 (105) 84 01/23/17 00:31 62 20 143/72 (95) 85 01/23/17 00:16 62 17 105/85 (92) 95 01/23/17 00:01 75 25 97 01/23/17 00:00 64 15 92 115/71 (86) 01/23/17 00:00 Oxymask 01/22/17 23:15 77 16 103/48 (66) 95 01/22/17 23:01 76 19 104/46 (65) 93 01/22/17 23:00 73 16 108/48 (68) 89 01/22/17 22:46 72 116/56 (76) 93 01/22/17 22:45 74 23 102/49 (66) 92 01/22/17 22:31 71 107/51 (69) 91 01/22/17 22:30 79 16 96/50 (65) 93 01/22/17 22:16 75 101/48 (65) 92 01/22/17 22:15 72 19 98/48 (65) 91 01/22/17 22:01 73 104/46 (65) 92 01/22/17 22:00 36.9 76 95 Notes Mental Status: alert / awake / arousable, participated in evaluation Pt Amnestic to Procedure: Yes Nausea / Vomiting: adequately controlled Pain: adequately controlled Airway Patency, RR, SpO2: stable & adequate BP & HR: stable & adequate Hydration State: stable & adequate Anesthetic Complications: no major complications apparent Anesthesia aware of post-operative eye pain, possibly due to corneal abrasions, and is following.
[2017-01-23] MEDS ORDERED: PIPERACILL/TAZOBAC CONSULT ACTIVE PRN (10:15)
[2017-01-23] MEDS ORDERED: PIPERACILL/TAZOBAC IV 3.375 GM in DEXTROSE 5% 100ML IV ONE (10:30)
[2017-01-23] MEDS: ACETAMINOPHEN 325 MG TAB PO SCH ×3 (11:37→23:43)
--- NOTE | 2017-01-23 13:14 | Pulmonology Progress Note ---
Pulmonary Progress Note Date of Service Jan 23, 2017. Attending Dr. Hurtado Subjective Patient doing well today denies any fever, chills or chest pain Objective Vital signs reviewed and stable on room air General: Awake alert oriented 3, no acute respiratory distress. CVS: S1-S2, regular rate and rhythm. Chest/lungs: Decreased breath sounds at the left lung base with IPC and place no erythema mild leakage around the insertion site. Abdomen: obese/nontender and nondistended bowel sounds positive Extremities: No cyanosis, no clubbing, no edema bilaterally. Microbiology: Supple pending Assessment & Plan 56-year-old male with empyema: #1 Empyema: Patient has had decortication responding well to current therapy. Per guidelines unless the patient grows out streptococcal pneumonia guided antibiotic therapy cannot be performed and we will have to chronically cover for multiple organisms including anaerobes. The patient is clinically doing well and radiographically improving moving to Augmentin after debridement and drainage as appropriate. At this time for week window and close follow-up with radiographic analysis will be required. Sign off: At this time the pulmonary team will sign off. Data Medications: Current Inpatient Medications Medications (Trade) Dose Ordered Sig/Prabhjot Route Start Time Stop Time Status Last Admin Dose Admin Ondansetron HCl (Zofran Inj) 4 mg Q6H PRN IV 01/19/17 17:00 02/18/17 16:59 Albuterol/ Ipratropium (Duoneb) 3 ml Q4R PRN INH 01/19/17 17:00 02/18/17 16:59 01/19/17 18:58 3 ML Metoprolol Succinate (Toprol Xl Tab) 100 mg DAILY PO 01/20/17 09:00 02/19/17 08:59 01/23/17 07:31 100 MG Albuterol (Ventolin Hfa Inhaler) 2 puffs Q6H PRN INH 01/20/17 06:45 02/19/17 06:44 Benzonatate (Tessalon Perles Cap) 100 mg TID PO 01/20/17 21:00 02/19/17 20:59 01/23/17 07:31 100 MG Codeine Phosphate/ Guaifenesin (Robitussin-AC Sugar Free Syrup) 10 ml Q6H PRN PO 01/20/17 20:00 02/19/17 19:59 01/21/17 06:28 10 ML Polyethylene (Miralax Powder Packet) 17 gm DAILY PRN PO 01/20/17 20:00 02/19/17 19:59 Polyethylene (Miralax Powder Packet) 17 gm DAILY PO 01/21/17 09:00 02/20/17 08:59 Losartan Potassium (coZAAR TAB) 50 mg QAM PO 01/23/17 09:00 02/22/17 08:59 01/23/17 07:32 50 MG Oxycodone HCl (Roxicodone Immediate Rel Tab) 5 mg Q6H PRN PO 01/22/17 18:45 02/05/17 18:44 Enoxaparin Sodium (Lovenox Inj) 40 mg DAILY SQ 01/23/17 09:00 02/22/17 08:59 01/23/17 07:33 40 MG Ondansetron HCl (Zofran Inj) 4 mg Q4H PRN IV 01/22/17 18:45 02/21/17 18:44 Docusate Sodium (coLACE CAP) 100 mg BID PO 01/22/17 21:00 02/21/17 20:59 01/23/17 07:31 100 MG Ketorolac Tromethamine (Toradol Inj) 15 mg Q8H IV. 01/22/17 20:00 01/24/17 12:01 01/23/17 11:37 15 MG Metoclopramide HCl (Reglan Inj) 10 mg Q8 IV. 01/22/17 22:00 01/23/17 21:59 01/23/17 05:58 10 MG Morphine Sulfate (MoRPHine SULFATE INJ) Q1H PRN IV 01/22/17 18:45 02/05/17 18:44 Lorazepam (Ativan Inj) 1 mg ONE PRN IV 01/22/17 21:30 Ciprofloxacin HCl (Ciloxan 0.3% Op Oint) 1 appln QID OP 01/23/17 09:00 01/30/17 08:59 01/23/17 12:53 1 APPLN Artificial Tears (Lacri-Lube Oph Oint) 1 appln Q2HWA PRN OP 01/22/17 23:30 02/21/17 23:29 01/23/17 00:01 1 APPLN Acetaminophen (Tylenol Tab) 650 mg Q6H PO 01/23/17 12:00 02/22/17 11:59 01/23/17 11:37 650 MG Piperacillin Sod/ Tazobactam Sod (Consult) 1 ea UD PRN N/A 01/23/17 10:15 02/22/17 10:14 Piperacillin Sod/ Tazobactam Sod 3.375 gm/Dextrose 115 ml @ 28.75 mls/ hr Q8@0000,0800,1600 IV 01/23/17 16:00 01/30/17 15:59 Vital Signs: Date Time Temp Pulse Resp B/P (MAP) Pulse Ox O2 Delivery O2 Flow Rate FiO2 01/23/17 10:40 Room Air 01/23/17 10:05 36.5 63 16 104/54 (71) 95 Room Air 01/23/17 08:53 36.6 69 25 96 01/23/17 08:05 96 Room Air 01/23/17 06:01 36.6 69 25 97/65 (76) 96 Room Air 119/66 (83) 01/23/17 06:00 63 22 102/66 (78) 96 01/23/17 05:00 67 23 01/23/17 04:01 63 13 106/88 (94) 99 Oxymask 2.0 132/65 (87) 01/23/17 04:00 61 15 112/92 (99) 100 01/23/17 04:00 Oxymask 01/23/17 03:04 53 17 99/67 (78) 100 114/55 (74) 01/23/17 03:01 67 22 105/67 (80) 97 Oxymask 2.0 01/23/17 03:00 68 23 106/68 (81) 99 01/23/17 02:16 61 20 113/64 (80) 96 111/57 (75) 01/23/17 02:01 37.0 59 14 104/68 (80) 97 Oxymask 2.0 01/23/17 02:00 64 15 96/82 (87) 99 01/23/17 01:46 67 21 119/65 (83) 96 01/23/17 01:32 64 23 129/62 (84) 99 01/23/17 01:16 60 23 144/73 (96) 86 01/23/17 01:01 60 18 125/56 (79) 94 01/23/17 01:00 60 16 106/49 (68) 98 119/54 (75) 01/23/17 00:46 61 20 142/87 (105) 84 01/23/17 00:31 62 20 143/72 (95) 85 01/23/17 00:16 62 17 105/85 (92) 95 01/23/17 00:01 75 25 97 01/23/17 00:00 64 15 92 115/71 (86) 01/23/17 00:00 Oxymask 01/22/17 23:15 77 16 103/48 (66) 95 01/22/17 23:01 76 19 104/46 (65) 93 01/22/17 23:00 73 16 108/48 (68) 89 01/22/17 22:46 72 116/56 (76) 93 01/22/17 22:45 74 23 102/49 (66) 92 01/22/17 22:31 71 107/51 (69) 91 01/22/17 22:30 79 16 96/50 (65) 93 01/22/17 22:16 75 101/48 (65) 92 01/22/17 22:15 72 19 98/48 (65) 91 01/22/17 22:01 73 104/46 (65) 92 01/22/17 22:00 36.9 76 95 01/22/17 21:46 76 99/49 (66) 93 01/22/17 21:45 73 91 01/22/17 21:31 80 18 109/60 (76) 96 01/22/17 21:30 81 15 99 01/22/17 21:16 82 16 97 01/22/17 21:15 80 21 97 01/22/17 21:01 74 17 105/50 (68) 96 01/22/17 21:01 74 17 105/50 (68) 96 Oxymask 2.0 01/22/17 21:00 77 22 98/50 (66) 96 01/22/17 20:55 88 20 110/56 (74) 98 Oxymask 01/22/17 20:47 80 19 97 Oxymask 2.0 01/22/17 20:40 78 22 123/55 (77) 97 Oxymask 01/22/17 20:32 36.7 83 22 124/53 (76) 97 Oxymask 01/22/17 20:25 80 24 97/58 (71) 97 Oxymask 6.0 01/22/17 20:24 84 22 100/61 (74) 93 Oxymask 01/22/17 20:16 80 107/43 (64) 95 Oxymask 01/22/17 20:10 74 20 107/46 (66) 95 Oxymask 8.0 01/22/17 20:01 81 26 104/40 (61) 89 Oxymask 01/22/17 20:00 Oxymask 01/22/17 19:55 70 14 124/100 (108) 89 Oxymask 01/22/17 19:46 36.7 72 23 102/48 (66) 92 Oxymask 01/22/17 19:41 72 20 90/61 (71) 91 Oxymask 01/22/17 19:40 71 14 88 Oxymask 10.0 01/22/17 19:30 36.6 72 20 100/54 94 Oxymask 8 Non-Rebreather 01/22/17 19:15 75 20 108/65 94 Oxymask 10 Non-Rebreather 01/22/17 19:05 70 22 109/66 95 Non-Rebreather 10 01/22/17 18:55 71 18 106/66 95 Non-Rebreather 15 01/22/17 18:49 36.7 78 18 100/77 92 Non-Rebreather 15 Laboratory Results: Last 24 Hours Test 01/22/17 21:52 01/23/17 05:21 Bedside Glucose 184 mg/dl White Blood Count 14.87 K/uL Red Blood Count 3.93 M/uL Hemoglobin 11.8 g/dL Hematocrit 35.6 % Mean Corpuscular Volume 90.6 fL Mean Corpuscular Hemoglobin 30.0 pg Mean Corpuscular Hemoglobin Concent 33.1 g/dl Platelet Count 368 K/uL Mean Platelet Volume 10.1 fL Neutrophils (%) (Auto) 83.0 % Lymphocytes (%) (Auto) 10.6 % Monocytes (%) (Auto) 5.4 % Eosinophils (%) (Auto) 0.1 % Basophils (%) (Auto) 0.1 % Neutrophils # (Auto) 12.33 K/uL Lymphocytes # (Auto) 1.58 K/uL Monocytes # (Auto) 0.81 K/uL Eosinophils # (Auto) 0.01 K/uL Basophils # (Auto) 0.02 K/uL RDW Standard Deviation 46.7 fL RDW Coefficient of Variation 14.0 % Immature Granulocyte % (Auto) 0.8 % Immature Granulocyte # (Auto) 0.12 K/uL Sodium Level 129 mmol/L Potassium Level 4.5 mmol/L Chloride Level 97 mmol/L Carbon Dioxide Level 25 mmol/L Anion Gap 7.0 mmol/L Blood Urea Nitrogen 25 mg/dl Creatinine 1.35 mg/dl Est Creatinine Clear Calc Drug Dose 75.4 ml/min Estimated GFR () 67.1 Estimated GFR (Non- 57.9 BUN/Creatinine Ratio 18.2 Random Glucose 203 mg/dl Calcium Level 8.2 mg/dl
[2017-01-23] MEDS ORDERED: PIPERACILL/TAZOBAC IV 3.375 GM in DEXTROSE 5% 100ML 100 ML IV SCH (14:00)
[2017-01-23] MEDS: PIPERACILL/TAZOBAC IV 3.375 GM in DEXTROSE 5% 100ML IV SCH ×2 (15:46→23:41)
--- NOTE | 2017-01-23 16:01 | Progress Note ---
Internal Med Progress Note Date of Service: Jan 23, 2017. Provider Documentation: SUBJECTIVE: The patient was seen and examined Clinically much better Denies any symptoms OBJECTIVE: Vital Signs-as noted below Exam: General-no distress at rest Eyes-normal ENT-normal Neck-Supple Lungs-Decreased breath sound on left side Minimal crackles at the left base Left sided Chest tube in situ Heart-Regular,no murmur appreciated Abdomen-Benign,no masses,bowel sound present Extremities-No edema Neuro-AAOx3 No focal neuro deficit Lab data as noted below. ASSESSMENT & PLAN: Left Sided Empyema SOB/PLEURAL EFFUSION: -pt presents with worsening pleural effusion on CT scan from previous on . -CT Chest: Interval increase in left pleural effusion with worsening left medial posterior airspace consolidation, infectious vs neoplastic. 2. mediastinal lymphadenopathy, reactive vs metastatic. 3. Small right pleural effusion, new. -Initially treated with Levaquin for CAP, took 2.5 days Augmentin also. 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 -continue Rocephin, Zithromax day#5 -Started on Zosyn -continue to hold ASA -Clinically better today -Drainage through the tube has decreased ,likely to come out tomorrow HTN: -stable -continue metoprolol and Hyzaar CHRONIC COUGH: improved -will provide Tessalon Perles and Robitussin AC PRN CONSTIPATION: resolved -Migralam ordered DVT PROPHYLAXIS Lovenox DISPOSITION Likely discharge in a day or two Vital Signs: Date Time Temp Pulse Resp B/P (MAP) Pulse Ox O2 Delivery O2 Flow Rate FiO2 01/23/17 15:29 36.5 58 18 110/66 (81) 95 Room Air 01/23/17 13:42 36.6 74 16 103/62 (76) 95 Room Air 01/23/17 10:40 Room Air 01/23/17 10:05 36.5 63 16 104/54 (71) 95 Room Air 01/23/17 08:53 36.6 69 25 96 01/23/17 08:05 96 Room Air 01/23/17 06:01 36.6 69 25 97/65 (76) 96 Room Air 119/66 (83) 01/23/17 06:00 63 22 102/66 (78) 96 01/23/17 05:00 67 23 01/23/17 04:01 63 13 106/88 (94) 99 Oxymask 2.0 132/65 (87) 01/23/17 04:00 61 15 112/92 (99) 100 01/23/17 04:00 Oxymask 01/23/17 03:04 53 17 99/67 (78) 100 114/55 (74) 01/23/17 03:01 67 22 105/67 (80) 97 Oxymask 2.0 01/23/17 03:00 68 23 106/68 (81) 99 01/23/17 02:16 61 20 113/64 (80) 96 111/57 (75) 01/23/17 02:01 37.0 59 14 104/68 (80) 97 Oxymask 2.0 01/23/17 02:00 64 15 96/82 (87) 99 01/23/17 01:46 67 21 119/65 (83) 96 01/23/17 01:32 64 23 129/62 (84) 99 01/23/17 01:16 60 23 144/73 (96) 86 01/23/17 01:01 60 18 125/56 (79) 94 01/23/17 01:00 60 16 106/49 (68) 98 119/54 (75) 01/23/17 00:46 61 20 142/87 (105) 84 01/23/17 00:31 62 20 143/72 (95) 85 01/23/17 00:16 62 17 105/85 (92) 95 01/23/17 00:01 75 25 97 01/23/17 00:00 64 15 92 115/71 (86) 01/23/17 00:00 Oxymask 01/22/17 23:15 77 16 103/48 (66) 95 01/22/17 23:01 76 19 104/46 (65) 93 01/22/17 23:00 73 16 108/48 (68) 89 01/22/17 22:46 72 116/56 (76) 93 01/22/17 22:45 74 23 102/49 (66) 92 01/22/17 22:31 71 107/51 (69) 91 12/11/17 22:30 79 16 96/50 (65) 93 01/22/17 22:16 75 101/48 (65) 92 01/22/17 22:15 72 19 98/48 (65) 91 01/22/17 22:01 73 104/46 (65) 92 01/22/17 22:00 36.9 76 95 01/22/17 21:46 76 99/49 (66) 93 01/22/17 21:45 73 91 01/22/17 21:31 80 18 109/60 (76) 96 01/22/17 21:30 81 15 99 01/22/17 21:16 82 16 97 01/22/17 21:15 80 21 97 01/22/17 21:01 74 17 105/50 (68) 96 01/22/17 21:01 74 17 105/50 (68) 96 Oxymask 2.0 01/22/17 21:00 77 22 98/50 (66) 96 01/22/17 20:55 88 20 110/56 (74) 98 Oxymask 01/22/17 20:47 80 19 97 Oxymask 2.0 01/22/17 20:40 78 22 123/55 (77) 97 Oxymask 01/22/17 20:32 36.7 83 22 124/53 (76) 97 Oxymask 01/22/17 20:25 80 24 97/58 (71) 97 Oxymask 6.0 01/22/17 20:24 84 22 100/61 (74) 93 Oxymask 01/22/17 20:16 80 107/43 (64) 95 Oxymask 01/22/17 20:10 74 20 107/46 (66) 95 Oxymask 8.0 01/22/17 20:01 81 26 104/40 (61) 89 Oxymask 01/22/17 20:00 Oxymask 01/22/17 19:55 70 14 124/100 (108) 89 Oxymask 01/22/17 19:46 36.7 72 23 102/48 (66) 92 Oxymask 01/22/17 19:41 72 20 90/61 (71) 91 Oxymask 01/22/17 19:40 71 14 88 Oxymask 10.0 01/22/17 19:30 36.6 72 20 100/54 94 Oxymask 8 Non-Rebreather 01/22/17 19:15 75 20 108/65 94 Oxymask 10 Non-Rebreather 01/22/17 19:05 70 22 109/66 95 Non-Rebreather 10 01/22/17 18:55 71 18 106/66 95 Non-Rebreather 15 01/22/17 18:49 36.7 78 18 100/77 92 Non-Rebreather 15 Lab Results: Results Past 24 Hours Test 01/22/17 21:52 01/23/17 05:21 Range/Units Bedside Glucose 184 70-99 mg/dl White Blood Count 14.87 4.8-10.8 K/uL Red Blood Count 3.93 4.7-6.1 M/uL Hemoglobin 11.8 14.0-18.0 g/dL Hematocrit 35.6 42-52 % Mean Corpuscular Volume 90.6 80-100 fL Mean Corpuscular Hemoglobin 30.0 25-34 pg Mean Corpuscular Hemoglobin Concent 33.1 32-36 g/dl Platelet Count 368 130-400 K/uL Mean Platelet Volume 10.1 7.4-10.4 fL Neutrophils (%) (Auto) 83.0 % Lymphocytes (%) (Auto) 10.6 % Monocytes (%) (Auto) 5.4 % Eosinophils (%) (Auto) 0.1 % Basophils (%) (Auto) 0.1 % Neutrophils # (Auto) 12.33 1.4-6.5 K/uL Lymphocytes # (Auto) 1.58 1.2-3.4 K/uL Monocytes # (Auto) 0.81 0.11-0.59 K/uL Eosinophils # (Auto) 0.01 0-0.5 K/uL Basophils # (Auto) 0.02 0-0.2 K/uL RDW Standard Deviation 46.7 36.4-46.3 fL RDW Coefficient of Variation 14.0 11.5-14.5 % Immature Granulocyte % (Auto) 0.8 % Immature Granulocyte # (Auto) 0.12 0.00-0.02 K/uL Sodium Level 129 136-145 mmol/L Potassium Level 4.5 3.5-5.1 mmol/L Chloride Level 97 98-107 mmol/L Carbon Dioxide Level 25 21-32 mmol/L Anion Gap 7.0 3-11 mmol/L Blood Urea Nitrogen 25 7-18 mg/dl Creatinine 1.35 0.60-1.40 mg/dl Est Creatinine Clear Calc Drug Dose 75.4 ml/min Estimated GFR () 67.1 Estimated GFR (Non- 57.9 BUN/Creatinine Ratio 18.2 10-20 Random Glucose 203 70-99 mg/dl Calcium Level 8.2 8.5-10.1 mg/dl
[2017-01-24] MEDS: KETOROLAC TROMETHAMINE 15 MG/ML VIAL IV. SCH ×2 (03:29→12:22)
[2017-01-24] MEDS: ACETAMINOPHEN 325 MG TAB PO SCH ×4 (06:17→23:54)
[2017-01-24] MEDS: ARTIFICIAL TEARS OP OINT 3.5 GM TUBE OP PRN (06:17)
[2017-01-24 06:54] LABS: CREATININE 1.27 mg/dl (0.60-1.40)
--- NOTE | 2017-01-24 07:10 | DIAGNOSTIC IMAGING REPORT ---
CHEST ONE VIEW PORTABLE CLINICAL HISTORY: decortication COMPARISON STUDY: 01/23/2017 FINDINGS: The cardiac and sternal contours remain stable. There are 2 left-sided chest tubes present. There is subcutaneous emphysema on the left. There is a stable trace left apical pneumothorax.. There is persistent left-sided pleural/extrapleural thickening. There is slight increased density left hilum, unchanged the prior study. Left basilar opacities remain stable. There are minimal right basilar atelectatic changes. IMPRESSION: No significant change from the preceding examination. No change in the position of the left-sided chest tubes. Stable trace left apical pneumothorax. Electronically signed by: River Lang M.D. 01/24/2017 7:09 AM Dictated Date/Time: 01/24/2017 7:07 AM
[2017-01-24 07:51] VITALS: BP 124/70; PULSE 78; TEMP 36.8; O2SAT 95
[2017-01-24 08:02] VITALS: O2SAT 95
[2017-01-24] MEDS: PIPERACILL/TAZOBAC IV 3.375 GM in DEXTROSE 5% 100ML IV SCH ×3 (08:13→23:55)
[2017-01-24] MEDS: CIPROFLOXACIN HCL 3.5 GM TUBE OP SCH ×4 (08:14→20:37)
[2017-01-24] MEDS: LOSARTAN POTASSIUM 50 MG TAB PO SCH (08:14)
[2017-01-24] MEDS: DOCUSATE SODIUM 100 MG CAP PO SCH ×2 (08:14→20:37)
[2017-01-24] MEDS: POLYETHYLENE (MIRALAX) 17 GM PACK PO SCH (08:14)
[2017-01-24] MEDS: BENZONATATE 100MG CAP PO SCH ×3 (08:15→20:34)
[2017-01-24] MEDS: METOPROLOL SUCC 50MG EXT REL TAB PO SCH (08:15)
[2017-01-24] MEDS: ENOXAPARIN 40 MG/0.4 ML SYR SQ SCH (08:16)
--- NOTE | 2017-01-24 11:43 | Progress Note ---
Internal Med Progress Note Date of Service: Jan 24, 2017. Provider Documentation: SUBJECTIVE: The patient was seen and examined Clinically much better Denies any symptoms Ambulating well ,wants to be discharged soon OBJECTIVE: Vital Signs-as noted below Exam: General-no distress at rest Eyes-normal ENT-normal Neck-Supple Lungs-Decreased breath sound on left side Minimal crackles at the left base-better today Left sided Chest tube in situ Heart-Regular,no murmur appreciated Abdomen-Benign,no masses,bowel sound present Extremities-No edema Neuro-AAOx3 No focal neuro deficit Lab data as noted below. ASSESSMENT & PLAN: Left Sided Empyema SOB/PLEURAL EFFUSION: -pt presents with worsening pleural effusion on CT scan from previous on . -CT Chest: Interval increase in left pleural effusion with worsening left medial posterior airspace consolidation, infectious vs neoplastic. 2. mediastinal lymphadenopathy, reactive vs metastatic. 3. Small right pleural effusion, new. -Initially treated with Levaquin for CAP, took 2.5 days Augmentin also. 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 -continue Rocephin, Zithromax day#5 -Started on Zosyn -continue to hold ASA -Clinically a lot better today 01/24 -Drainage through the tube has decreased and CXR is looking better -Waiting for the tube to come out today and likely discharge tomorrow HTN: -stable -continue metoprolol and Hyzaar CHRONIC COUGH: improved -will provide Tessalon Perles and Robitussin AC PRN -controlled CONSTIPATION: resolved -Migralam ordered DVT PROPHYLAXIS Lovenox DISPOSITION Likely discharge tomorrow Vital Signs: Date Time Temp Pulse Resp B/P (MAP) Pulse Ox O2 Delivery O2 Flow Rate FiO2 01/24/17 08:02 95 Room Air 01/24/17 07:51 36.8 78 18 124/70 (88) 95 Room Air 01/24/17 07:35 Room Air 01/23/17 23:35 Room Air 01/23/17 23:10 36.8 71 18 115/69 (84) 98 Room Air 01/23/17 18:29 36.7 72 18 124/73 (90) 96 Room Air 01/23/17 15:30 Room Air 01/23/17 15:29 36.5 58 18 110/66 (81) 95 Room Air 01/23/17 13:42 36.6 74 16 103/62 (76) 95 Room Air Lab Results: Results Past 24 Hours Test 01/24/17 05:39 Range/Units Creatinine 1.27 0.60-1.40 mg/dl Est Creatinine Clear Calc Drug Dose 80.2 ml/min Estimated GFR () 72.2 Estimated GFR (Non- 62.3
[2017-01-24 12:03] VITALS: BP 118/76; PULSE 62; TEMP 36.7; O2SAT 95
--- NOTE | 2017-01-24 13:54 | Progress Note ---
Post ICU Progress Note Date & Time Jan 24, 2017 at 13:52 Vital Signs Vital Signs Past 12 Hours Date Time Temp Pulse Resp B/P (MAP) Pulse Ox O2 Delivery O2 Flow Rate FiO2 01/24/17 12:03 36.7 62 20 118/76 (90) 95 Room Air 01/24/17 08:02 95 Room Air 01/24/17 07:51 36.8 78 18 124/70 (88) 95 Room Air 01/24/17 07:35 Room Air Notes Mental Status: alert / awake, participated in evaluation Nausea / Vomiting: adequately controlled Pain: adequately controlled Airway Patency, RR, SpO2: stable & adequate BP & HR: stable & adequate Patient admitted 01/19/17 with progressive SOB and found to have a loculated effusion. A thoracentesis was performed by Dr. Bond on 01/20/2017. Pathology on that pleural fluid was negative for malignant cells. The patient was then taken to the OR and Dr. Bond performed a left thoracoscopic empyemectomy, extensive decortication, and wedge resection, left lower lobe. The patient was then brought postoperatively to the ICU with a left PleurX catheter and a chest tube in place. Biopsy of the left pleura is still pending. The first night in the ICU it was identified that the patient had bilateral corneal abrasions and treatment was initiated. Patient had no further complications in the unit and was transferred to the medical floor. The patient is seen in room 378 and is found sitting in a bedside chair with no evidence of distress. He denies chest pain or SOB and indicates that pain is controlled at the chest tube and PleurX sites. Minimal drainage from the PleurX as the patient still has chest tube in place with cyclic suction to the chest tube. He has no other acute complaints. Consider outpatient follow up in 1 to 2 weeks with: Dr. Bond Repeat imaging needed: CXR in the morning Follow up cultures: Await results from VATs/pleura Reviewed progress notes, labs, and inpatient medication list Continue current management Additional recommendations: Continue to increase ambulation. Alternating suction coordinated with abx to allow patient to ambulate in halls more frequently. I discussed this with the patient's nurse Critical care medicine will sign off at this time. Please feel free to reconsult as needed. Thank you for including us in the care of this patient Consults & Procedures Consultants: Dr. Bond - thoracic surgery Dr. Corona - Wildlife Conservation Officer Dr. Nance - pulmonary Procedures: Left thoracentesis 01/20/2017 - Dr. Bond Left thoracoscopic empyemectomy with extensive decortication. Wedge resection, left lower lobe 01/22/2017 - Dr. Bond
[2017-01-24 15:49] VITALS: BP 107/70; PULSE 74; TEMP 37.1; O2SAT 96
--- NOTE | 2017-01-24 20:11 | SURGERY PROGRESS NOTE ---
DATE: 01/24/2017 Mr. Rosario looks great today. He has had 99% saturation on room air. He has been walking. He is tolerating a diet and states his breathing is fine. He is not coughing anything up. He still has minimal pain. We drained very little from his chest tube now. The pus pockets that we drained are growing out of gram positive cocci. We still do not have an identification or sensitivities. His x-ray looks good. He has pleural thickening on the left. Quite frankly, I think he looks very good. He has regular rate and rhythm of his heart. Abdomen is obese but soft. He still has edema of his lower extremities, but I think it is bit better. ASSESSMENT AND PLAN: Postoperative day #2 status post thoracoscopic extensive decortication and removal of empyema cavity. He looks very good therefore I will pull his chest tube out tomorrow. I or may not leave the PleurX catheter depending on how much he drains.
[2017-01-24 23:49] VITALS: BP 122/79; PULSE 80; TEMP 37.6; O2SAT 93
[2017-01-25] MEDS: ACETAMINOPHEN 325 MG TAB PO SCH ×2 (05:40→12:07)
--- NOTE | 2017-01-25 07:07 | DIAGNOSTIC IMAGING REPORT ---
CHEST ONE VIEW PORTABLE CLINICAL HISTORY: 56 years-old Male presenting with effusion . TECHNIQUE: Portable upright AP view of the chest was obtained. COMPARISON: 01/24/2017. FINDINGS: 2 large bore left pleural drains are unchanged in position at the left apex. Minimal associated subcutaneous emphysema along the left lateral chest wall. Atherosclerosis of aortic arch. Cardiac silhouette remains enlarged. Persistent left basilar opacity and left pleural fluid not significant changed from prior. Trace residual left apical pneumothorax. Right lung with minimal basilar bandlike opacities. Degenerative changes of the thoracic spine. Contour deformity of left seventh rib consistent with old fracture. Upper abdomen normal. IMPRESSION: 1. Persistent left basilar consolidation and left pleural effusion. The effusion may be loculated. 2. Trace residual left apical pneumothorax. 3. Stable positioning of the left pleural drains. Electronically signed by: Nate Carmona M.D. 01/25/2017 7:06 AM Dictated Date/Time: 01/25/2017 7:02 AM
[2017-01-25 08:02] VITALS: BP 124/76; PULSE 75; TEMP 36.8; O2SAT 95
--- NOTE | 2017-01-25 08:28 | DIAGNOSTIC IMAGING REPORT ---
CHEST ONE VIEW PORTABLE CLINICAL HISTORY: tube removal tube position COMPARISON STUDY: 01/25/2017 6:48 AM FINDINGS: Interval removal of one of the 2 left-sided chest tubes. Lateral chest tube has been removed. The medial chest tube is unchanged in location. Minimal residual left apical pneumothorax unchanged. Pleural thickening changes left hemithorax unchanged. IMPRESSION: Interval removal of one of the 2 left-sided chest tubes. Trace residual pneumothorax unchanged from the prior study. The above report was generated using voice recognition software. It may contain grammatical, syntax or spelling errors. Electronically signed by: Jose Alfredo Edward M.D. 01/25/2017 8:27 AM Dictated Date/Time: 01/25/2017 8:26 AM
[2017-01-25] MEDS: CIPROFLOXACIN HCL 3.5 GM TUBE OP SCH ×2 (08:37→12:08)
[2017-01-25] MEDS: POLYETHYLENE (MIRALAX) 17 GM PACK PO SCH (08:37)
[2017-01-25] MEDS: BENZONATATE 100MG CAP PO SCH (08:37)
[2017-01-25] MEDS: PIPERACILL/TAZOBAC IV 3.375 GM in DEXTROSE 5% 100ML IV SCH (08:37)
[2017-01-25] MEDS: DOCUSATE SODIUM 100 MG CAP PO SCH (08:37)
[2017-01-25] MEDS: LOSARTAN POTASSIUM 50 MG TAB PO SCH (08:38)
[2017-01-25] MEDS: METOPROLOL SUCC 50MG EXT REL TAB PO SCH (08:38)
[2017-01-25] MEDS: ENOXAPARIN 40 MG/0.4 ML SYR SQ SCH (08:38)
[2017-01-25 11:35] LABS: HEMOGLOBIN 10.9 g/dL (14.0-18.0); MEAN CELL VOLUME 89.1 fL (80-100); MEAN CORPUSCULAR HEMOGLOBIN 30.4 pg (25-34); MEAN CORPUSCULAR HGB CONC 34.1 g/dl (32-36); MEAN PLATELET VOLUME 9.4 fL (7.4-10.4); PLATELET COUNT 422 K/uL (130-400); RED CELL DISTRIBUTION WIDTH SD 45.9 fL (36.4-46.3); WHITE BLOOD COUNT 12.02 K/uL (4.8-10.8)
[2017-01-25 12:11] LABS: CALCIUM 8.4 mg/dl (8.5-10.1); CREATININE 0.99 mg/dl (0.60-1.40); POTASSIUM 4.4 mmol/L (3.5-5.1)
--- NOTE | 2017-01-25 12:51 | Progress Note ---
Internal Med Progress Note Date of Service: Jan 25, 2017. Provider Documentation: SUBJECTIVE: The patient was seen and examined Clinically much better Denies any symptoms Ambulating well ,wants to be discharged soon S/P Pleurx Catheter placement Discussed with Dr Bond Can be discharged home today OBJECTIVE: Vital Signs-as noted below Exam: General-no distress at rest Eyes-normal ENT-normal Neck-Supple Lungs-Decreased breath sound on left side Minimal crackles at the left base-better today Left sided Chest PleuRx catheter in place Heart-Regular,no murmur appreciated Abdomen-Benign,no masses,bowel sound present Extremities-No edema Neuro-AAOx3 No focal neuro deficit Lab data as noted below. ASSESSMENT & PLAN: Left Sided Empyema SOB/PLEURAL EFFUSION: -pt presents with worsening pleural effusion on CT scan from previous on . -CT Chest: Interval increase in left pleural effusion with worsening left medial posterior airspace consolidation, infectious vs neoplastic. 2. mediastinal lymphadenopathy, reactive vs metastatic. 3. Small right pleural effusion, new. -Initially treated with Levaquin for CAP, took 2.5 days Augmentin also. 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 -continue Rocephin, Zithromax day#5 -Started on Zosyn -continue to hold ASA -Clinically a lot better today 01/24 -Drainage through the tube has decreased and CXR is looking better -Waiting for the tube to come out today and likely discharge tomorrow -S/p PleurX catheter placement Pleural fluid is growing Gm Positive Cocci D/W Thoracic Surger::will place on Augmentin HTN: -stable -continue metoprolol and Hyzaar CHRONIC COUGH: improved -will provide Tessalon Perles and Robitussin AC PRN -controlled CONSTIPATION: resolved -Migralam ordered DVT PROPHYLAXIS Lovenox DISPOSITION Discharge home today Vital Signs: Date Time Temp Pulse Resp B/P (MAP) Pulse Ox O2 Delivery O2 Flow Rate FiO2 01/25/17 08:02 36.8 75 16 124/76 (92) 95 Room Air 01/25/17 07:30 Room Air 01/24/17 23:55 Room Air 01/24/17 23:49 37.6 80 16 122/79 (93) 93 Room Air 01/24/17 16:00 Room Air 01/24/17 15:49 37.1 74 18 107/70 (82) 96 Room Air Lab Results: Results Past 24 Hours Test 01/25/17 11:23 Range/Units White Blood Count 12.02 4.8-10.8 K/uL Red Blood Count 3.59 4.7-6.1 M/uL Hemoglobin 10.9 14.0-18.0 g/dL Hematocrit 32.0 42-52 % Mean Corpuscular Volume 89.1 80-100 fL Mean Corpuscular Hemoglobin 30.4 25-34 pg Mean Corpuscular Hemoglobin Concent 34.1 32-36 g/dl RDW Standard Deviation 45.9 36.4-46.3 fL RDW Coefficient of Variation 14.0 11.5-14.5 % Platelet Count 422 130-400 K/uL Mean Platelet Volume 9.4 7.4-10.4 fL Sodium Level 131 136-145 mmol/L Potassium Level 4.4 3.5-5.1 mmol/L Chloride Level 98 98-107 mmol/L Carbon Dioxide Level 28 21-32 mmol/L Anion Gap 5.0 3-11 mmol/L Blood Urea Nitrogen 16 7-18 mg/dl Creatinine 0.99 0.60-1.40 mg/dl Est Creatinine Clear Calc Drug Dose 102.8 ml/min Estimated GFR () 97.6 Estimated GFR (Non- 84.2 BUN/Creatinine Ratio 16.2 10-20 Random Glucose 111 70-99 mg/dl Calcium Level 8.4 8.5-10.1 mg/dl
[2017-01-25] MEDS ORDERED: LCTX PO (12:53)
[2017-01-25 12:54] VITALS: BP 124/76; PULSE 75; TEMP 36.8; O2SAT 95
--- NOTE | 2017-01-25 12:55 | Discharge Instructions ---
Discharge Instructions Date of Service Jan 25, 2017. Admission Reason for Admission: Pleural Effusion, Shortness Of Breath Discharge Discharge Diagnosis / Problem: Left Sided Empyema,S/P PleurX cateter placement Discharge Goals Goal(s): Prevent Disease Progression Activity Recommendations Activity Limitations: resume your previous activity . Instructions / Follow-Up Instructions / Follow-Up Dr Chan on 02/01/17 at 11: 05 AM .Please keep appointment with Thoracic Surgery. Current Hospital Diet Patient's current hospital diet: AHA Diet (Heart Healthy) Discharge Diet Recommended Diet: AHA Diet (Heart Healthy) Procedures Procedures Performed: Left Video-Assisted Thoracoscopy with Decortication, drainage of empyema. Resection of left lower lobe Pending Studies Studies pending at discharge: no Medical Emergencies . Who to Call and When: Medical Emergencies: If at any time you feel your situation is an emergency, please call 911 immediately. . Non-Emergent Contact Non-Emergency issues call your: Primary Care Provider . Past History Medical & Surgical History: (1) Loculated pleural effusion (2) Shortness of breath (3) HTN (hypertension) (4) Hx of solitary pulmonary nodule (5) Pleural effusion (6) Status post thoracostomy tube placement . "Provider Documentation" section prepared by Brandi Waller. . VTE Core Measure Inpt VTE Proph given/why not?: SCD's
[2017-01-25] MEDS ORDERED: AMOXICILLIN/CLAVULANATE TAB 875 MG TAB PO SCH (17:45)
--- NOTE | 2017-01-25 21:43 | SURGERY PROGRESS NOTE ---
DATE: 01/25/2017 Mr. Rosario was seen today. Mr. Rosario is 3 days status post a thoracoscopic evacuation of empyema and a decortication. He has done very well. He is draining very little from his chest tube. His PleurX was putting out very little also. I drained about 75 mL of serous bloody fluid from his PleurX. I went ahead and removed his chest tube and left the PleurX in place. His sites are clean, his lungs are clear and he is afebrile. At this point, he is growing out a strep intermedius and should be sensitive to amoxicillin. We will talk about discharge in the near future. I would continue him on oral antibiotics. We will pull this PleurX catheter out in the future.
--- NOTE | 2017-01-26 08:00 | Discharge Summary ---
Discharge Summary Date of Service Jan 26, 2017. Discharge Summary Admission Date: Jan 19, 2017 at 16:55 Discharge Date: Jan 25, 2017 Discharge Disposition: Home Principal Diagnosis: Left Sided Empyema,S/P PleurX catheter placement Secondary Diagnoses/Problems: Please see H&P and Hospital progress note Procedures: Left sided thoracotomy and PleurX catheter placement Medication Reconciliation New Medications: Lactobacillus Acidophilus (Lactinex) Tab 2 TAB PO BID, #40 TAB Continued Medications: Albuterol (Ventolin Hfa) 60 Puffs/5400 Mcg Aers 2 INHA PO Q6 for SOB/Wheezing Amoxicillin & Pot Clavulanate (Augmentin 875-125 mg) 1 Tab Tab 1 TAB PO BID for 8 Days, #16 TAB Aspirin (Aspirin Ec) 81 Mg Tab 81 MG PO DAILY Hctz/Losartan (Hyzaar 12.5MG/50MG) Tab 1 TAB PO DAILY, TAB Metoprolol Succ (Toprol Xl) (Toprol-Xl ) 100 Mg Tabcr 100 MG PO DAILY, TAB Admission Information HPI (per Admitting provider): Pt is 56 y/o with PMH HTN presented to ER with c/o SOB. Pt reports started with SOB with exertion in 11/2016. He had symptoms for approx 3 weeks prior to presenting to ER on 12/31/16 and he was treated for presumed pneumonia with Levaquin and albuterol inhaler. Pt states finished course and thought he was feeling better, but then started with increased SOB. States was SOB with climbing flight of stairs but has worsened to SOB walking around in his house. SOB with talking a lot also. Reports night sweats x couple of weeks. He has been having hot flashes past 2 months. He reports cough for past couple of years. States today coughed some yellow sputum. Coughing spells causes a BOLTON which resolves. Reports at end of work day will have some swelling LE which resolves by morning. Denies worsening LE edema. Pt states past couple of weeks has lost approx 10lbs as he has had decreased appetite. Hx smoker for 20 years. He saw PCP 2 days ago and was started on augmentin and had CXR and CT chest ordered. Denies hx asthma or COPD. Denies hemoptysis, orthopnea, PND, N/V/D/C, BOLTON, dizziness, syncope, vision changes, neck pain, CP, sore throat, choking, otalgia, rhinorrhea, abdominal pain, paresthesias, weakness, extremity weakness , rashes, urinary symptoms. 01/19/17 CT Chest: 1. Interval increase in left pleural effusion with worsening left medial posterior airspace consolidation, infectious vs neoplastic. 2. mediastinal lymphadenopathy, reactive vs metastatic. 3. Small right pleural effusion, new 01/17/17 CXR: moderate to large L pleural effusion progression compared to , probable underlying pneumonia vs neoplasm 12/31/16 CT chest: 3.4cm masslike consolidation w/i superior segment LLL, L pleural effusion 01/06/15 CT chest: 5mm pleural based LLL nodule, several other tiny nodules throughout lungs 01/28/16 CT chest: 5mm pleural based LLL nodule, several other tiny nodules throughout lungs unchanged Past Medical/Surgical History Medical Problems: (1) Borderline hyperlipidemia Status: Chronic (2) HTN (hypertension) Status: Chronic (3) Hx of solitary pulmonary nodule Permanent Comment: 2014, 2015 CT chest - 5mm LLL pleural based nodule Status: Chronic Surgical Problems: (1) Hx of cardiovascular stress test Permanent Comment: 2003 Status: Resolved (2) Hx of colonoscopy Permanent Comment: 2012 - normal Status: Resolved Family History Diabetes mellitus GRANDFATHER FH: cancer BROTHER (?umbilical CA) FH: hyperlipidemia MOTHER Hypertension FATHER Social History Smoking Status: Former Smoker (smoked 0.5ppd x 20-30 years) Smokeless Tobacco Use: former- chewed snuff for approx 30 years Alcohol Use: 1-2 beers most days of week, on weekends 6 beers Drug Use: none Marital Status: Housing status: lives with significant other Occupational Status: employed Multi-Drug Resistant Organisms History of MDRO: No Allergies Coded Allergies: No Known Allergies (Unverified , 01/19/17) Home Medications Scheduled Albuterol (Ventolin Hfa), 2 INHA PO Q6 Amoxicillin & Pot Clavulanate (Augmentin 875-125 mg), 1 TAB PO BID Aspirin (Aspirin Ec), 81 MG PO DAILY Hctz/Losartan (Hyzaar 12.5MG/50MG), 1 TAB PO DAILY Metoprolol Succ (Toprol Xl) (Toprol-Xl ), 100 MG PO DAILY Review of Systems Constitutional: No sweats (see HPI) Eyes: No worsening of vision, No eye pain, No redness, No discharge, No diplopia ENT: No hearing loss, No unusual epistaxis, No nasal symptoms, No sore throat, No trouble swallowing Respiratory: + shortness of breath (see HPI) Cardiovascular: No chest pain, No orthopnea, No PND, No palpitations Abdomen: No pain, No nausea, No vomiting, No diarrhea, No constipation, No GI bleeding Musculoskeletal: No joint pain, No muscle pain, No calf pain Genitourinary - Male: No hematuria, No dysuria, No urinary frequency, No urinary urgency, No urinary hesitancy, No urinary retention, No urinary incontinence Neurologic: No paralysis, No weakness, No numbness/tingling, No vertigo, No balance problems Psychiatric: No depression symptoms, No anxiety Endocrine: No fatigue, No excessive thirst, No excessive urination Hematologic / Lymphatic: + night sweats (see HPI), No abnormal bleeding/ bruising, No clotting problems Integumentary: + new/changing skin lesions (had R auricle ear lesion removed at logger today), No rash, No itch Physical Ex - H&P Physical Exam Vital Signs Date Time Temp Pulse Resp B/P (MAP) Pulse Ox O2 Delivery O2 Flow Rate FiO2 01/19/17 16:22 87 01/19/17 16:22 88 16 141/76 94 Room Air 01/19/17 15:03 94 Room Air 01/19/17 14:30 93 Room Air 01/19/17 14:25 36.3 88 20 145/93 93 Room Air General Appearance: no apparent distress, + obese Head: normocephalic, atraumatic Eyes: normal inspection, PERRL, EOMI, sclerae normal ENT: hearing grossly normal, pharynx normal, + pertinent finding (mucous membranes moist) Neck: supple, no JVD, trachea midline Respiratory/Chest: chest non-tender, no accessory muscle use, + decreased breath sounds (LLL, otherwise clear. Pt becomes SOB with several sentences ) Cardiovascular: regular rate, rhythm, no murmur, normal peripheral pulses Abdomen/GI: normal bowel sounds, non tender, soft Back: normal inspection, no CVA tenderness Extremities/Musculoskelatal: normal inspection, no calf tenderness, normal capillary refill, non-tender, + pedal edema (mild LE bilaterally) Neurologic/Psych: alert, normal mood/affect, oriented x 3 Skin: normal color, warm/dry, + pertinent finding (R auricle superior aspect with open biopsy site, covered with bandaid, no active bleeding) Diagnostics - H&P Diagnostics Laboratory Results Results Past 24 Hours Test 01/19/17 15:16 Range/Units White Blood Count 12.02 4.8-10.8 K/uL Red Blood Count 4.13 4.7-6.1 M/uL Hemoglobin 12.8 14.0-18.0 g/dL Hematocrit 36.6 42-52 % Mean Corpuscular Volume 88.6 80-100 fL Mean Corpuscular Hemoglobin 31.0 25-34 pg Mean Corpuscular Hemoglobin Concent 35.0 32-36 g/dl Platelet Count 316 130-400 K/uL Mean Platelet Volume 10.1 7.4-10.4 fL Neutrophils (%) (Auto) 76.5 % Lymphocytes (%) (Auto) 10.3 % Monocytes (%) (Auto) 11.6 % Eosinophils (%) (Auto) 0.7 % Basophils (%) (Auto) 0.2 % Neutrophils # (Auto) 9.20 1.4-6.5 K/uL Lymphocytes # (Auto) 1.24 1.2-3.4 K/uL Monocytes # (Auto) 1.40 0.11-0.59 K/uL Eosinophils # (Auto) 0.08 0-0.5 K/uL Basophils # (Auto) 0.02 0-0.2 K/uL RDW Standard Deviation 44.1 36.4-46.3 fL RDW Coefficient of Variation 13.5 11.5-14.5 % Immature Granulocyte % (Auto) 0.7 % Immature Granulocyte # (Auto) 0.08 0.00-0.02 K/uL Prothrombin Time 12.4 9.0-12.0 SECONDS Prothromb Time International Ratio 1.2 0.9-1.1 Activated Partial Thromboplast Time 25.7 21.0-31.0 SECONDS Partial Thromboplastin Ratio 1.0 Sodium Level 130 136-145 mmol/L Potassium Level 4.0 3.5-5.1 mmol/L Chloride Level 95 98-107 mmol/L Carbon Dioxide Level 25 21-32 mmol/L Anion Gap 10.0 3-11 mmol/L Blood Urea Nitrogen 23 7-18 mg/dl Creatinine 1.06 0.60-1.40 mg/dl Est Creatinine Clear Calc Drug Dose 97.7 ml/min Estimated GFR () 89.9 Estimated GFR (Non- 77.5 BUN/Creatinine Ratio 21.8 10-20 Random Glucose 102 70-99 mg/dl Calcium Level 8.7 8.5-10.1 mg/dl Magnesium Level 2.2 1.8-2.4 mg/dl Total Bilirubin 0.4 0.2-1 mg/dl Aspartate Amino Transf (AST/SGOT) 25 15-37 U/L Alanine Aminotransferase (ALT/SGPT) 34 12-78 U/L Alkaline Phosphatase 88 45-117 U/L Total Protein 7.3 6.4-8.2 gm/dl Albumin 2.1 3.4-5.0 gm/dl Globulin 5.2 2.5-4.0 gm/dl Albumin/Globulin Ratio 0.4 0.9-2 Diagnostic Radiology 01/19/17 CT Chest: 1. Interval increase in left pleural effusion with worsening left medial posterior airspace consolidation, infectious vs neoplastic. 2. mediastinal lymphadenopathy, reactive vs metastatic. 3. Small right pleural effusion, new 01/17/17 CXR: moderate to large L pleural effusion progression compared to 12/31/16, probable underlying pneumonia vs neoplasm EKG EKG: NSR, rate 81, incomplete RBBB Impression - H&P Impression Assessment and Plan SOB/PLEURAL EFFUSION Pt with worsening pleural effusion on CT scan from previous on 12/31/16. Today CT Chest: 1. Interval increase in left pleural effusion with worsening left medial posterior airspace consolidation, infectious vs neoplastic. 2. mediastinal lymphadenopathy, reactive vs metastatic. 3. Small right pleural effusion, new. Pt 93% on RA. Is SOB with prolonged talking, and reports SOB with walking short distances, which has worsened over past couple of weeks. Initially treated with Levaquin for CAP, took 2.5 days Augmentin also. WBC: 12. afebrile. Hx LLL pulmonary nodule, hx smoker >20 years. Question infectious consolidation, but higher suspicion underlying malignancy. -supplemental O2 per protocol -duoneb Q4h prn -will start Rocephin, Zithromax to treat possible underlying pneumonia -sputum culture -cbc, prp in am -repeat CXR tomorrow -pulm consult, anticipate pleurocentesis -will hold ASA today HTN stable currently -continue metoprolol -continue hyzaar DVT PROPHYLAXIS -SCDs as anticipating procedure DISPOSITION -admit tele -Full Code -Follows with Dr Chan for routine care Pt was seen with Dr Villasenor. See addendum ATTENDING ADDENDUM ; pt seen and examined, care co ordinated with Joyce Kim PA-C 56 yo M with hx of tobacco use 30 pk /yr quit on 2013 , sent form PCP office for progressive SOB , CT finding of large left sided pleural effusion , with rt medial consolidation vs infiltrate pt mention of being progressively SOB in past 1 week , worse in last 1-2 , getting up on stairs-developing significant dyspneic spell no fever or chills, has minimum cough no lower ext swelling -does not have any known cardiac or pulmonary disease Plural effusion : concern for possible malignancy Pulmonology consulted for thoracentesis , Cxray in AM empiric Abx for possible rt base pneumonia no report of dysphagia or aspiration by pt Full code please refer to documentation of Isabell Kim PA-C for further discussion of other issues Harini Villasenor MD Level of Care Telemetry Resuscitation Status FULL RESUSCITATION VTE Prophylaxis VTE Risk Assessment Done? Y/N: Yes Risk Level: Moderate Given or contraindicated: SCD's Additional Copies To Estevan Chan M.D. Physical Exam (per Admitting): General Appearance: no apparent distress, + obese Head: normocephalic, atraumatic Eyes: normal inspection, PERRL, EOMI, sclerae normal ENT: hearing grossly normal, pharynx normal, + pertinent finding (mucous membranes moist) Neck: supple, no JVD, trachea midline Respiratory/Chest: chest non-tender, no accessory muscle use, + decreased breath sounds (LLL, otherwise clear. Pt becomes SOB with several sentences ) Cardiovascular: regular rate, rhythm, no murmur, normal peripheral pulses Abdomen/GI: normal bowel sounds, non tender, soft Back: normal inspection, no CVA tenderness Extremities/Musculoskelatal: normal inspection, no calf tenderness, normal capillary refill, non-tender, + pedal edema (mild LE bilaterally) Neurologic/Psych: alert, normal mood/affect, oriented x 3 Skin: normal color, warm/dry, + pertinent finding (R auricle superior aspect with open biopsy site, covered with bandaid, no active bleeding) Hospital Course Left Sided Empyema SOB/PLEURAL EFFUSION: -pt presents with worsening pleural effusion on CT scan from previous on . -CT Chest: Interval increase in left pleural effusion with worsening left medial posterior airspace consolidation, infectious vs neoplastic. 2. mediastinal lymphadenopathy, reactive vs metastatic. 3. Small right pleural effusion, new. -Initially treated with Levaquin for CAP, took 2.5 days Augmentin also. 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 -continue Rocephin, Zithromax day#5 -Started on Zosyn -continue to hold ASA -Clinically a lot better today 01/24 -Drainage through the tube has decreased and CXR is looking better -Waiting for the tube to come out today and likely discharge tomorrow -S/p PleurX catheter placement Pleural fluid is growing Gm Positive Cocci D/W Thoracic Surger::will place on Augmentin HTN: -stable -continue metoprolol and Hyzaar CHRONIC COUGH: improved -will provide Tessalon Perles and Robitussin AC PRN -controlled CONSTIPATION: resolved -Migralam ordered DVT PROPHYLAXIS Lovenox DISPOSITION Discharge home today Total time spent on discharge = 35 minutes This includes examination of the patient, discharge planning, medication reconciliation, and communication with other providers. Discharge Instructions Date of Service Jan 25, 2017. Admission Reason for Admission: Pleural Effusion, Shortness Of Breath Discharge Discharge Diagnosis / Problem: Left Sided Empyema,S/P PleurX cateter placement Discharge Goals Goal(s): Prevent Disease Progression Activity Recommendations Activity Limitations: resume your previous activity . Instructions / Follow-Up Instructions / Follow-Up Dr Chan on 02/01/17 at 11: 05 AM .Please keep appointment with Thoracic Surgery. Current Hospital Diet Patient's current hospital diet: AHA Diet (Heart Healthy) Discharge Diet Recommended Diet: AHA Diet (Heart Healthy) Procedures Procedures Performed: Left Video-Assisted Thoracoscopy with Decortication, drainage of empyema. Resection of left lower lobe Pending Studies Studies pending at discharge: no Medical Emergencies . Who to Call and When: Medical Emergencies: If at any time you feel your situation is an emergency, please call 911 immediately. . Non-Emergent Contact Non-Emergency issues call your: Primary Care Provider . Past History Medical & Surgical History: (1) Loculated pleural effusion (2) Shortness of breath (3) HTN (hypertension) (4) Hx of solitary pulmonary nodule (5) Pleural effusion (6) Status post thoracostomy tube placement . "Provider Documentation" section prepared by Brandi Waller. . VTE Core Measure Inpt VTE Proph given/why not?: SCD's <Electronically signed by Brandi Waller M.D.> Signed: 01/25/17 [id number] Additional Copies To Estevan Chan M.D.
== END 2017-01-25 13:20 | disposition home health service (06) | DRG 163 ==
LOC: C.EDB 14:22 → C.MSICU 16:55 → ENRESERV 17:50 → CANRESERV 17:50 → ENRESERV 17:54 → C.2T 01-20 14:44 → C.MSICU 01-22 18:54 → ENRESERV 01-23 08:40 → C.MSN 01-23 09:54
PROVIDERS: ADMIT Hospitalist; ATTEND Internal Medicine
PROC: 0W9B3ZX Drainage of Left Pleural Cavity, Percutaneous Approach, Diagnostic (ICD-10-PCS; 2017-01-20)
PROC: 0B9P30Z Drainage of Left Pleura with Drainage Device, Percutaneous Approach (ICD-10-PCS; principal; 2017-01-22 14:30)
PROC: 0BDP4ZX Extraction of Left Pleura, Percutaneous Endoscopic Approach, Diagnostic (ICD-10-PCS; principal; 2017-01-22 14:30)
PROC: 0BBJ4ZX Excision of Left Lower Lung Lobe, Percutaneous Endoscopic Approach, Diagnostic (ICD-10-PCS; principal; 2017-01-22 14:30)
PROC: 0W9B4ZZ Drainage of Left Pleural Cavity, Percutaneous Endoscopic Approach (ICD-10-PCS; principal; 2017-01-22 14:30)
DX: J86.9 Pyothorax without fistula (principal); J18.9 Pneumonia, unspecified organism; B95.5 Unspecified streptococcus as the cause of diseases classified elsewhere; R91.1 Solitary pulmonary nodule; I10 Essential (primary) hypertension; R05 Cough; K59.00 Constipation, unspecified; S05.01XA Injury of conjunctiva and corneal abrasion without foreign body, right eye, initial encounter; S05.02XA Injury of conjunctiva and corneal abrasion without foreign body, left eye, initial encounter; X58.XXXA Exposure to other specified factors, initial encounter; Y92.239 Unspecified place in hospital as the place of occurrence of the external cause; E66.9 Obesity, unspecified; Z68.38 Body mass index [BMI] 38.0-38.9, adult; Z72.89 Other problems related to lifestyle; Z87.891 Personal history of nicotine dependence; Z79.82 Long term (current) use of aspirin; Z79.899 Other long term (current) drug therapy; Z83.3 Family history of diabetes mellitus; Z82.49 Family history of ischemic heart disease and other diseases of the circulatory system; Z83.49 Family history of other endocrine, nutritional and metabolic diseases; Z82.0 Family history of epilepsy and other diseases of the nervous system

== ENCOUNTER → 2017-02-01 | Outpatient (CLI) | payer BC, OTHER ==
[~2017-02-01] MED LIST changes: +AMOX875T PO; +HYZ/50125 PO; +LCTX PO; -LOSA25TA18 PO; -METO-837 PO; +METO100T44 PO; -OXYC1TAB3 PO; +PRVHFAIN PO; -RANI150T3 PO
--- NOTE | 2017-02-01 13:06 | DIAGNOSTIC IMAGING REPORT ---
CHEST 2 VIEWS ROUTINE CLINICAL HISTORY: 56 years-old Male presenting with PLEURAL EFFUSION. TECHNIQUE: PA and lateral views of the chest were obtained. COMPARISON: 01/25/2017. FINDINGS: Large bore left pleural drain terminates at the paramediastinal left upper lung. Cardiac silhouette unchanged in size. Persistent left talar predominant opacities with small loculated left pleural effusion. No residual pneumothorax. Right lung and pleural space clear. Degenerative changes of the thoracic spine. Upper abdomen normal. IMPRESSION: 1. Stable appearance of the left basilar predominant consolidation with loculated left pleural effusion and large bore left pleural drain. No residual pneumothorax. Electronically signed by: Nate Carmona M.D. 02/01/2017 1:05 PM Dictated Date/Time: 02/01/2017 1:03 PM
== END | disposition home or self-care (01) ==
LOC: C.RAD1850 12:56
PROVIDERS: ATTEND Surgery
DX: J90 Pleural effusion, not elsewhere classified (principal)

== ENCOUNTER → 2017-02-15 | Outpatient (CLI) | payer OTHER ==
--- NOTE | 2017-02-15 13:22 | DIAGNOSTIC IMAGING REPORT ---
TWO VIEW CHEST CLINICAL HISTORY: Pleural effusion. FINDINGS: PA and lateral chest radiographs are compared to study dated 02/01/2017. Correlation is made with chest CT dated 01/19/2017. A left-sided chest tube has been removed. The heart is top normal for projection. The pulmonary vasculature is noncongested. The right lung appears clear. There is a small left pleural effusion with left basilar consolidation. This is similar in size to 02/01/2017. There is no pneumothorax. The bony thorax appears intact. IMPRESSION: 1. A left-sided chest tube has been removed. 2. There is a small left pleural effusion with left basilar consolidation, similar to the 02/01/2017 examination. Electronically signed by: Jonel Serrano M.D. 02/15/2017 1:21 PM Dictated Date/Time: 02/15/2017 1:19 PM
== END | disposition home or self-care (01) ==
LOC: C.RAD1850 13:11
PROVIDERS: ATTEND Surgery
DX: J90 Pleural effusion, not elsewhere classified (principal)